=== PATIENT | female | born 1930 | race Caucasian/White ===

== ENCOUNTER 2016-09-27 12:53 | Inpatient (IN) ==
[2016-09-27] MEDS ORDERED: Pantoprazole 80 MG in 0.9 % Sodium Chloride 50 ML IVPB ONE (12:58)
[2016-09-27] MEDS ORDERED: 0.9 % Sodium Chloride 2,000 ML IVC ONE (12:58)
[2016-09-27] MEDS ORDERED: 0.9 % Sodium Chloride 1,000 ML ONE ×2 (13:02→15:17)
--- NOTE | 2016-09-27 13:04 | Emergency Department Note ---
Disposition Clinical Impression: Atrial fibrillation with RVR, Hypovolemia due to hemorrhage, Elevated troponin I level, Acute on chronic renal failure, Elevated LFTs, Lactic acidosis, Pleural effusion GI bleed Qualifiers: GI bleed type/associated pathology: melena Qualified Code(s): K92.1 - Melena Disposition: Admitted As Inpatient Condition: Critical Time of Disposition: 17:09 GI Bleed HPI - General Chief complaint: ED GI Bleed Stated complaint: Blood in Stool Time Seen by Provider: 09/27/16 12:57 Nursing Notes Reviewed: Yes Vital Signs Reviewed: Yes - History of Present Illness HPI Narrative: Patient is an 86-year-old female with atrial fibrillation on amiodarone with no anti-ideation, who presents with a GI bleed, she called paramedics who responded to her house and found that she had a large amount of dark black colored stool in the toilet in her bed, she was brought to the hospital she has vague complaints including nonspecific abdominal pain, and generalized weakness , patient is pale in route per EMS. Patient reports some abdominal pain and nausea, she denies chest pain, weight changes, urinary problems, fever or chills , shortness of breath, or one-sided weakness. Positive hematochezia, positive melenic stools denies hematemesis Pt Subjective Complaint: melena, blood streaked stool Onset (ago): hour(s) Consistency: intermittent Severity: severe Improves with: nothing Worsens with: bowel movement Context: unknown Treatments Prior to Arrival: none - Related Data Home Medications Medication Instructions Recorded Confirmed Alprazolam [Xanax 0.25 MG Tablet] 0.25 mg PO BID PRN 09/27/16 09/27/16 Amiodarone [Cordarone] 100 mg PO DAILY 09/27/16 09/27/16 Amlodipine [Norvasc] 5 mg PO DAILY 09/27/16 09/27/16 Aspirin [Lo-Dose Aspirin EC] 81 mg PO DAILY 09/27/16 09/27/16 Atorvastatin [Lipitor] 40 mg PO DAILY 09/27/16 09/27/16 Ipratropium/Albuterol Neb [Duoneb] 3 ml IH Q6HR 09/27/16 09/27/16 Levothyroxine [Synthroid] 50 mcg PO DAILY 09/27/16 09/27/16 Lisinopril/Hydrochlorothiazide 1 tab PO BID 09/27/16 09/27/16 [Zestoretic 20-12.5 mg Tablet] Metformin [Glucophage] 500 mg PO BID 09/27/16 09/27/16 Metoprolol [Lopressor] 100 mg PO BID 09/27/16 09/27/16 Oxygen 2 l .ROUTE AD 09/27/16 09/27/16 Sertraline [Zoloft] 200 mg PO DAILY 09/27/16 09/27/16 Allergies Allergy/AdvReac Type Severity Reaction Status Date / Time No Known Allergies Allergy Verified 09/27/16 13:12 Review of Systems: She is a very limited historian, generally she does deny chest pain, but reports nonspecific abdominal pain, she is only alert and oriented 1, so she is a limited historian therefore secondary to altered mental status review of systems is not completely possible Limitations: ROS unobtainable due to patients medical condition (Patient is a very limited historian) Physical Exam - General Limitations: altered mental status General appearance: alert (Appears pale and weak.) - ENT ENT exam: mucous membranes dry - Neck Neck exam: Present: normal inspection, full ROM, trachea midline - Chest Chest inspection: Present: normal inspection, symmetric chest wall rise - Respiratory Respiratory exam: Present: normal lung sounds bilaterally - Cardiovascular Cardiovascular exam: Present: tachycardia, irregular rhythm - Abdominal Exam Abdominal exam: Present: soft, tenderness (Diffuse). Absent: guarding, rebound , Diallo's sign, Rovsing's sign - Rectal Exam Packing Machine Pilot Can Router present during exam: Yes Rectal exam: Present: normal rectal tone, heme (+) stool, black stool, bloody stool - Extremities Exam Extremities exam: Present: normal inspection, full ROM. Absent: tenderness, pedal edema - Expanded Lower Extremity Exam Neurovascular/Tendon exam: Absent: normal capillary refill - Back Exam Back exam: Present: normal inspection, full ROM. Absent: tenderness - Neurological Exam Neurological exam: Present: alert, CN II-XII intact. Absent: oriented X3 ( Laboratory and she self), motor sensory deficit - Psychiatric Psychiatric exam: Present: normal affect, anxious - Skin Skin exam: Present: other (cap Refill greater than 5 seconds) Course Course Narrative: 86yof with afib, GI bleed will get type and screen, CBC BMP lipase lactate, 2 large bore IVs, cardiac monitoring, the patient's hypotensive try 1 L fluids at this time, and reassess. - Reevaluation(s) Reevaluation #1: Patient unresponsive to first liter and a half fluids, added 2 units of RBCs, after talking with GI we will get CT of head and abdomen, pending these findings admit the patient to likely ICU bed Time: 14:31 Reevaluation #2: Spoke with Dr Maldonado states to consult hospitalist for ICU admission. Reevaluation #3: Dr Mcdaniels accepts for ICU, GI bleed hypotension, Anemia - Consultations Consultation #1: Paged Dr Levy Consultation #2: I did speak with Dr. Levy, he states to palpation of Protonix drip give 2 units of RBCs and stabilized, he will pursue upper and lower endoscopy after patient was stable and in the hospital. GI consult placed Time: 14:23 Vital Signs Temperature 97.7 F 09/27/16 12:57 Pulse Rate 113 09/27/16 12:57 Respiratory Rate 18 09/27/16 12:57 Blood Pressure 92/64 09/27/16 12:57 O2 Sat by Pulse Oximetry 96 09/27/16 12:57 Temperature 97.6 F 09/27/16 15:42 Pulse Rate 108 09/27/16 17:44 Respiratory Rate 20 09/27/16 17:23 Blood Pressure 90/65 09/27/16 17:23 O2 Sat by Pulse Oximetry 100 09/27/16 17:03 Oxygen Delivery Oxygen Delivery Nasal Cannula GI Bleed - [facility] Narrative Medical decision making narrative: 86-year-old female with GI bleed, A. fib, hypotension despite 2 L of fluids and 2 units of RBCs, evaluated by Dr. Levy at bedside, admitted to the medicine service Dr. Mcdaniels, accepting, patient stable with hematocrit and 65 upon ED disposition. DNR CCA expressed per daughter who is at bedside. - Differential Diagnosis Likely: Upper gastrointestinal hemorrhage, Lower gastrointestinal hemorrhage, melena - Medical Records Medical records reviewed: Yes I reviewed the patient's medical records. - Lab Data Lab results reviewed: Yes I reviewed the patient's lab results. Result diagrams: 09/27/16 13:50 09/27/16 13:50 Lab Results 09/27/16 09/27/16 09/27/16 Range/Units 13:50 13:50 13:50 WBC (4.3-11.1) K/mcL RBC (3.82-4.97) M/mcL Hgb (11.5-15.4) g/dL Hct (35.3-44.9) % MCV (83.0-100.0) fL MCH (28.0-33.3) pg MCHC (31.6-35.5) g/dL RDW (11.5-14.5) % Plt Count (140-400) K/mcL MPV (9.4-12.4) fL Immature Gran % (0-4) % Seg Neutrophils % % Lymphocytes % % Monocytes % % Eosinophils % % Basophils % % Neutrophils # (1.6-8.9) K/mcL Lymphocytes # (0.6-4.6) K/mcL Monocytes # (0.0-1.3) K/mcL Eosinophils # (0.0-0.6) K/mcL Basophils # (0.0-0.2) K/mcL PT (9.4-12.1) Seconds INR APTT (26.0-36.0) Seconds Sodium 139 (136-145) mEq/L Potassium 5.7 H (3.5-4.5) mEq/L Chloride 109 (98-109) mEq/L Carbon Dioxide 16 L (19-29) mEq/L BUN 104 H (7-20) mg/dL Creatinine 3.26 H (0.57-1.11) mg/dL Est GFR ( Amer) 16 L (> 60) Est GFR (Non-Af Amer) 13 L (> 60) BUN/Creatinine Ratio 32 H (6-26) Glucose 167 H (70-99) mg/dL Calculated Osmolality 324 H (280-300) Lactic Acid 2.3 H (0.5-2.2) mmol/L Calcium 8.2 L (8.6-10.8) mg/dL Magnesium 1.9 (1.6-2.6) mg/dL Total Bilirubin 1.3 H (0.2-1.2) mg/dL AST 164 H (5-34) Units/L ALT 67 H (0-55) Units/L Alkaline Phosphatase 77 (38-126) Units/L Troponin I 0.04 H* (0-0.03) ng/mL Serum Total Protein 5.7 L (6.0-8.3) g/dL Albumin 2.2 L (3.5-5.0) g/dL Globulin 3.5 (2.4-3.5) g/dL Albumin/Globulin Ratio 0.6 L (1.1-2.2) Lipase 38 (8-78) Units/L Urine Color (Yellow) Urine Clarity (Clear) Urine pH (5.0-8.0) pH Units Ur Specific Teller (1.010-1.025) Urine Protein (Neg-Trace) mg/dL Urine Glucose (UA) (Normal) mg/dL Urine Ketones (Negative) mg/dL Urine Blood (Negative) Urine Nitrite (Negative) Urine Bilirubin (Negative) Urine Urobilinogen (Normal) mg/dL Ur Leukocyte Esterase (Negative) Urine Microscopic RBC (0-3) per hpf Urine Microscopic WBC (0-3) per hpf Ur Squamous Epith Cells (None-Few) per lpf Urine Bacteria (None-Few) per hpf Hyaline Casts (None-Few) per lpf Ur Culture Indicated? (NO) Stool Occult Blood (Negative) Blood Type Antibody Screen Crossmatch 09/27/16 09/27/16 09/27/16 Range/Units 13:50 13:50 13:50 WBC 18.5 H (4.3-11.1) K/mcL RBC 4.39 (3.82-4.97) M/mcL Hgb 10.7 L (11.5-15.4) g/dL Hct 35.9 (35.3-44.9) % MCV 81.8 L (83.0-100.0) fL MCH 24.4 L (28.0-33.3) pg MCHC 29.8 L (31.6-35.5) g/dL RDW 17.2 H (11.5-14.5) % Plt Count 141 (140-400) K/mcL MPV 12.4 (9.4-12.4) fL Immature Gran % 0.7 (0-4) % Seg Neutrophils % 87.2 % Lymphocytes % 5.9 % Monocytes % 6.0 % Eosinophils % 0.1 % Basophils % 0.1 % Neutrophils # 16.1 H (1.6-8.9) K/mcL Lymphocytes # 1.1 (0.6-4.6) K/mcL Monocytes # 1.1 (0.0-1.3) K/mcL Eosinophils # 0.0 (0.0-0.6) K/mcL Basophils # 0.0 (0.0-0.2) K/mcL PT 17.9 H (9.4-12.1) Seconds INR 1.6 APTT 30.2 (26.0-36.0) Seconds Sodium (136-145) mEq/L Potassium (3.5-4.5) mEq/L Chloride (98-109) mEq/L Carbon Dioxide (19-29) mEq/L BUN (7-20) mg/dL Creatinine (0.57-1.11) mg/dL Est GFR ( Amer) (> 60) Est GFR (Non-Af Amer) (> 60) BUN/Creatinine Ratio (6-26) Glucose (70-99) mg/dL Calculated Osmolality (280-300) Lactic Acid (0.5-2.2) mmol/L Calcium (8.6-10.8) mg/dL Magnesium (1.6-2.6) mg/dL Total Bilirubin (0.2-1.2) mg/dL AST (5-34) Units/L ALT (0-55) Units/L Alkaline Phosphatase (38-126) Units/L Troponin I (0-0.03) ng/mL Serum Total Protein (6.0-8.3) g/dL Albumin (3.5-5.0) g/dL Globulin (2.4-3.5) g/dL Albumin/Globulin Ratio (1.1-2.2) Lipase (8-78) Units/L Urine Color (Yellow) Urine Clarity (Clear) Urine pH (5.0-8.0) pH Units Ur Specific Teller (1.010-1.025) Urine Protein (Neg-Trace) mg/dL Urine Glucose (UA) (Normal) mg/dL Urine Ketones (Negative) mg/dL Urine Blood (Negative) Urine Nitrite (Negative) Urine Bilirubin (Negative) Urine Urobilinogen (Normal) mg/dL Ur Leukocyte Esterase (Negative) Urine Microscopic RBC (0-3) per hpf Urine Microscopic WBC (0-3) per hpf Ur Squamous Epith Cells (None-Few) per lpf Urine Bacteria (None-Few) per hpf Hyaline Casts (None-Few) per lpf Ur Culture Indicated? (NO) Stool Occult Blood (Negative) Blood Type A POSITIVE Antibody Screen NEGATIVE Crossmatch See Detail 09/27/16 09/27/16 Range/Units 15:13 15:41 WBC (4.3-11.1) K/mcL RBC (3.82-4.97) M/mcL Hgb (11.5-15.4) g/dL Hct (35.3-44.9) % MCV (83.0-100.0) fL MCH (28.0-33.3) pg MCHC (31.6-35.5) g/dL RDW (11.5-14.5) % Plt Count (140-400) K/mcL MPV (9.4-12.4) fL Immature Gran % (0-4) % Seg Neutrophils % % Lymphocytes % % Monocytes % % Eosinophils % % Basophils % % Neutrophils # (1.6-8.9) K/mcL Lymphocytes # (0.6-4.6) K/mcL Monocytes # (0.0-1.3) K/mcL Eosinophils # (0.0-0.6) K/mcL Basophils # (0.0-0.2) K/mcL PT (9.4-12.1) Seconds INR APTT (26.0-36.0) Seconds Sodium (136-145) mEq/L Potassium (3.5-4.5) mEq/L Chloride (98-109) mEq/L Carbon Dioxide (19-29) mEq/L BUN (7-20) mg/dL Creatinine (0.57-1.11) mg/dL Est GFR ( Amer) (> 60) Est GFR (Non-Af Amer) (> 60) BUN/Creatinine Ratio (6-26) Glucose (70-99) mg/dL Calculated Osmolality (280-300) Lactic Acid (0.5-2.2) mmol/L Calcium (8.6-10.8) mg/dL Magnesium (1.6-2.6) mg/dL Total Bilirubin (0.2-1.2) mg/dL AST (5-34) Units/L ALT (0-55) Units/L Alkaline Phosphatase (38-126) Units/L Troponin I (0-0.03) ng/mL Serum Total Protein (6.0-8.3) g/dL Albumin (3.5-5.0) g/dL Globulin (2.4-3.5) g/dL Albumin/Globulin Ratio (1.1-2.2) Lipase (8-78) Units/L Urine Color Dark Yellow (Yellow) Urine Clarity Cloudy A (Clear) Urine pH 5.0 (5.0-8.0) pH Units Ur Specific Teller 1.019 (1.010-1.025) Urine Protein Negative (Neg-Trace) mg/dL Urine Glucose (UA) Normal (Normal) mg/dL Urine Ketones Negative (Negative) mg/dL Urine Blood Negative (Negative) Urine Nitrite Negative (Negative) Urine Bilirubin Small H (Negative) Urine Urobilinogen Normal (Normal) mg/dL Ur Leukocyte Esterase Small H (Negative) Urine Microscopic RBC 3-5 H (0-3) per hpf Urine Microscopic WBC 5-15 H (0-3) per hpf Ur Squamous Epith Cells Many H (None-Few) per lpf Urine Bacteria None Seen (None-Few) per hpf Hyaline Casts Few (None-Few) per lpf Ur Culture Indicated? YES A (NO) Stool Occult Blood Positive A (Negative) Blood Type Antibody Screen Crossmatch - Radiology Data Radiology results reviewed: Yes I reviewed the patient's radiology results. Chest X-Ray 09/27/16 12:58 IMPRESSION: Cardiomegaly with edema and small effusions. D/ / 09/27/2016 14:02:21 Shaggy Gonzalez MD / [facility] Interpreting Provider: Shaggy Gonzalez MD Head CT 09/27/16 13:57 IMPRESSION: No acute intracranial abnormality. 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 Mild to moderate parenchymal volume loss. Mild to moderate chronic microvascular disease. D/ / Alexandru Doss MD / Alexandru Doss MD Interpreting Provider: Alexandru Doss MD Abdomen/Pelvis CT 09/27/16 14:19 IMPRESSION: 1. No acute finding to account for patient's hypotension. 2. Heterogeneous appearance of the gallbladder wall, inseparable from adjacent liver parenchyma. Recommend right upper quadrant ultrasound for further evaluation. Differential includes gallbladder inflammation versus gallbladder mass. 3. Indistinct hypodensity in the left hepatic lobe, 1.1 cm in size. Finding would better be assessed with a liver MRI. 4. Small to moderate ascites. 5. Moderate to large right pleural effusion with compressive atelectasis of the right lower lobe. Small left pleural effusion. 6. Anasarca. D/ / 09/27/2016 15:58:09 Elias Blount MD / [facility] Interpreting Provider: Elias Blount MD - EKG Data EKG attestation: Yes I reviewed and interpreted this EKG. EKG shows normal: sinus rhythm Rate: tachycardia (10 5 bpm and irregularly irregular QRS 134 QTc 431) Supply/QRS: normal When compared to previous EKG there are: previous EKG unavailable - Core Measures AMI Core Measures Followed: No Attestation Statement - Attestation Attestation: For this encounter, I have reviewed the resident, SENIOR ACCOUNTS PAYABLE SPECIALIST, or PA documentation, treatment plan, and medical decision making; and I have had face to face time with this patient. 86-year-old female presents with concerns of GI bleeding. Patient states she had multiple episodes of hematochezia and melena at home. This was confirmed by EMS who found stool throughout her bathroom. Patient is confused and is unable to provide a significant history regarding her symptoms. Family arrived and stated that she did not have any history of GI bleeding in the past. She does not take any anticoagulant medications. Patient's hemoglobin was not anemic however she had another episode of maroon stool in the emergency department. She is pale, tachycardic, hypotensive and we were treating her as a GI bleed. Patient was given her Protonix and we contacted Dr. Levy regarding her case and presentation who agreed with plan for admission to the ICU and will likely scope her with endoscopy and colonoscopy once her blood pressure stabilizes. Since started on the first red blood cell transfusion in the emergency department. Patient continues to have a soft blood pressure however her map is greater than 65. We spoke with the patient and with the daughter who both agreed that the patient would be a DNR CCA. Patient is mildly confused on the emergency department however her daughter is the next of kin.
[2016-09-27 13:58] LABS: Basophils % 0.1 %; Eosinophils % 0.1 %; Hematocrit 35.9 % (35.3-44.9); Hemoglobin 10.7 g/dL (11.5-15.4); Immature Granulocytes % 0.7 % (0-4); Lymphocytes # 1.1 K/mcL (0.6-4.6); Lymphocytes % 5.9 %; Mean Corpuscular HGB Conc 29.8 g/dL (31.6-35.5); Mean Corpuscular Hemoglobin 24.4 pg (28.0-33.3); Mean Corpuscular Volume 81.8 fL (83.0-100.0); Mean Platelet Volume 12.4 fL (9.4-12.4); Monocytes # 1.1 K/mcL (0.0-1.3); Neutrophils # 16.1 K/mcL (1.6-8.9); Platelet Count 141 K/mcL (140-400); Red Blood Count 4.39 M/mcL (3.82-4.97); Red Cell Distribution Width 17.2 % (11.5-14.5); Segmented Neutrophils % 87.2 %
[2016-09-27 14:06] LABS: INR 1.6; Prothrombin Time 17.9 Seconds (9.4-12.1)
[2016-09-27 14:08] LABS: Activated Partial Thrombo Time 30.2 Seconds (26.0-36.0)
[2016-09-27 14:15] LABS: Albumin 2.2 g/dL (3.5-5.0); Albumin/Globulin Ratio 0.6 (1.1-2.2); Bilirubin,Total 1.3 mg/dL (0.2-1.2); Calcium 8.2 mg/dL (8.6-10.8); Globulin 3.5 g/dL (2.4-3.5); Magnesium 1.9 mg/dL (1.6-2.6); Potassium 5.7 mEq/L (3.5-4.5); Total Protein 5.7 g/dL (6.0-8.3)
[2016-09-27] MEDS ORDERED: Pantoprazole 40 MG in 0.9 % Sodium Chloride Mini Bag 100 ML IVC SCH (14:30)
[2016-09-27 15:24] LABS: Bilirubin,Urine Small (Negative); Blood,Urine Negative (Negative); Clarity,Urine Cloudy (Clear); Color,Urine Dark Yellow (Yellow); Glucose,Urine (UA) Normal (Normal); Ketones,Urine Negative (Negative); Leukocyte Esterase,Urine Small (Negative); Nitrite,Urine Negative (Negative); Protein,Urine Negative (Neg-Trace); Specific Gravity,Urine 1.019 (1.010-1.025); Urobilinogen,Urine Normal (Normal)
[2016-09-27 15:26] LABS: Bacteria,Urine None Seen per hpf (None-Few); Hyaline Casts,Urine Few per lpf (None-Few); Squamous Epithelial Cell,Urine Many per lpf (None-Few)
[2016-09-27] MEDS ORDERED: *HR* Morphine 2 MG/ML SYRINGE IVP PRN (17:25)
[2016-09-27] MEDS ORDERED: Naloxone 0.4 MG/ML INJ IVP PRN (17:25)
--- NOTE | 2016-09-27 18:08 | Internal Med History&Physical ---
Date of Encounter: 09/27/16 Time of Encounter: 17:30 Assessment and Plan (1) Acute blood loss anemia Current visit: Yes Status: Acute Melena. Hgb 10.7. Transfused 2 PRBC. repeat hgb this evening. close monitor in ICU. Dr Levy consulted, plan for EGD in AM. critical care time 30 minutes (2) Hypovolemia due to hemorrhage Current visit: Yes Status: Acute Bp 87/67 Received 3L IV fluids and 2 PRBC. Bp now is 91/68. close monitoring in ICU. IV fluids. repeat hgb. transfuse as needed (3) GI bleed Current visit: Yes Status: Acute melena at home and in the ED. IV PPI drip transfused [address] Levy consulted. IV fluids. Qualifiers: GI bleed type/associated pathology: melena Qualified Code(s): K92.1 - Melena (4) ELYSE (acute kidney injury) Current visit: Yes Status: Acute elevated BUN/CR with hyperkalemia and metabolic acidosis secondary to GI bleed. received IV fluids. repeat BMP. avoid nephrotoxins as possible. close monitor of kidney function. (5) Metabolic acidosis Current visit: Yes Status: Acute secondary to lactic acidosis. (6) Elevated troponin I level Current visit: Yes Status: Acute likely supply demand mismatch check echocardiogram serial troponins ekg in AM (7) Lactic acidosis Current visit: Yes Status: Acute IV fluids. follow up lactic acid (8) Atrial fibrillation Current visit: Yes Status: Acute EGK showed a fib HR 109. holding home dose of metoprolol due to hypotension and GI bleed. Qualifiers: Atrial fibrillation type: chronic Qualified Code(s): I48.2 - Chronic atrial fibrillation (9) HTN (hypertension) Current visit: Yes Status: Acute hypotensive due to GI bleed. holding all home meds Qualifiers: Hypertension type: essential hypertension Qualified Code(s): I10 - Essential (primary) hypertension (10) Heart failure Current visit: Yes Status: Acute unknown LVEF. CXR shows mild pulmonary edema. Qualifiers: Heart failure type: unspecified heart failure type Heart failure chronicity : chronic Qualified Code(s): I50.9 - Heart failure, unspecified Internal Medicine - H&P: HPI Chief complaint: Episode of black stools this morning. Admitted From: Home Plans for Post Hospital Care: Home History of present illness: Ms. Waller is a 86 year old female with past medical history of diabetes, hypertension, CHF, and atrial fibrillation on amiodarone. Not on anticoagulation. Patient only takes aspirin. Patient is very confused and unable to provide a history of present illness. Her daughter is at bedside, answering all questions. For a week, patient complaining of generalized weakness, confusion and imbalance but did not want to see a doctor. This morning she had an episode of black stools and her daughter brought her to the ED. No prior episodes of bleeding. No abdominal pain. No other bleeding. No fever. No cough. No syncope. no Seizure. No focal deficit. No headache. No nausea. No vomiting. No history of colon cancer in the family. In ED, patient was hypotensive BP 86/61, tachycardic rate 113 and hypoxia requiring 4 L of oxygen via nasal cannula SaO2 96%. He had an episode of a large dark stools while in ED. She received 4 L of IV NS and was started on a Protonix drip. Past Med Surg Social Fam HX - Past Medical History Medical history: atrial fibrillation, CHF, COPD, dementia, hypertension, myocardial infarction, thyroid disease Psychiatric history: anxiety, depression - Past Surgical History Surgical History: coronary bypass (CABG) - Social History Smoking Status: Never smoker Smokeless Tobacco Status: No Alcohol use: none Drug use: none - Family History Mother Hx Family Cancer: Yes (uterine cancer) Internal Medicine - H&P: Meds Alprazolam [Xanax 0.25 MG Tablet] 0.25 mg PO BID PRN 09/27/16 [History] Amiodarone [Cordarone] 100 mg PO DAILY 09/27/16 [History] Amlodipine [Norvasc] 5 mg PO DAILY 09/27/16 [History] Aspirin [Lo-Dose Aspirin EC] 81 mg PO DAILY 09/27/16 [History] Atorvastatin [Lipitor] 40 mg PO DAILY 09/27/16 [History] Ipratropium/Albuterol Neb [Duoneb] 3 ml IH Q6HR 09/27/16 [History] Levothyroxine [Synthroid] 50 mcg PO DAILY 09/27/16 [History] Lisinopril/Hydrochlorothiazide [Zestoretic 20-12.5 mg Tablet] 1 tab PO BID 09/27 [History] Metformin [Glucophage] 500 mg PO BID 09/27/16 [History] Metoprolol [Lopressor] 100 mg PO BID 09/27/16 [History] Oxygen 2 l .ROUTE AD 09/27/16 [History] Sertraline [Zoloft] 200 mg PO DAILY 09/27/16 [History] Allergies No Known Allergies Allergy (Verified 09/27/16 13:12) ROS unobtainable: due to mental status All Systems PM: A 10-system review of systems was performed and is negative for pertinent findings except as documented above in the HPI. - Constitutional Vitals: Temp Pulse Resp BP Pulse Ox 97.6 F 94 20 90/65 100 09/27/16 15:42 09/27/16 17:03 09/27/16 17:23 09/27/16 17:23 09/27/16 17:03 General appearance: Present: A&O X 1, pleasant, no acute distress Exam: Patient has her eyes closed but she opens it upon request from her daughter and turns her head to my side and says hello. She follows some commands such as raising her right arm and taking deep breath. She moves all extremities. - Eye Eye exam: Present: PERRL, sclera anicteric - ENT ENT exam: Present: mucous membranes dry - Neck Neck exam general surgery: Present: supple, trachea midline. Absent: lymphadenopathy - Respiratory Respiratory exam: Present: CTAB - Cardiovascular Cardiovascular exam: Present: tachycardia - GI/Abdominal GI/Abdominal exam: Present: normal bowel sounds, soft. Absent: distended, tenderness - Extremities Exam Extremities exam: Absent: pedal edema - Skin Skin exam: Present: pallor, rash (multiple Psoriatic lesions over her extremities and abdomen.) Internal Med - H&P Results - Labs CBC & Chem 7: 09/27/16 13:50 09/27/16 13:50
[2016-09-27] MEDS ORDERED: Ondansetron 4 MG/2 ML VIAL IVP PRN (18:12)
--- NOTE | 2016-09-27 18:56 | Event Note ---
Date of Encounter: 09/27/16 Time of Encounter: 15:[address] scan. D/W Daughter. Melena x 1 episode and now anemia and renal failure and poss HF. Rec: PPI infusion Blood transfusion EGD am as pt Hb not critical and she is getting imaging doen and need to be stabilize.
[2016-09-27] MEDS: Pantoprazole 40 MG in 0.9 % Sodium Chloride Mini Bag 100 ML IVC SCH (20:11)
[2016-09-27 22:32] LABS: Hemoglobin 13.8 g/dL (11.5-15.4)
[2016-09-28] MEDS: Pantoprazole 40 MG in 0.9 % Sodium Chloride Mini Bag 100 ML IVC SCH ×5 (01:08→23:54)
[2016-09-28 03:10] LABS: Basophils % 0.1 %; Hematocrit 43.7 % (35.3-44.9); Hemoglobin 13.5 g/dL (11.5-15.4); Immature Granulocytes % 1.1 % (0-4); Immature Platelets 7.2 % (1.1-6.1); Lymphocytes # 1.2 K/mcL (0.6-4.6); Lymphocytes % 5.9 %; Mean Corpuscular HGB Conc 30.9 g/dL (31.6-35.5); Mean Corpuscular Hemoglobin 25.5 pg (28.0-33.3); Mean Corpuscular Volume 82.5 fL (83.0-100.0); Monocytes # 1.2 K/mcL (0.0-1.3); Monocytes % 5.9 %; Neutrophils # 17.1 K/mcL (1.6-8.9); Nucleated Red Blood Cells 0.3 /100 WBC (0); Platelet Count 126 K/mcL (140-400); Red Cell Distribution Width 17.4 % (11.5-14.5)
[2016-09-28 03:24] LABS: Albumin 2.3 g/dL (3.5-5.0); Albumin/Globulin Ratio 0.6 (1.1-2.2); Bilirubin,Direct 1.3 mg/dL (0.0-0.5); Bilirubin,Indirect 0.7 mg/dL (0.0-1.2); Calcium 8.4 mg/dL (8.6-10.8); Magnesium 1.8 mg/dL (1.6-2.6); Phosphorous 4.8 mg/dL (2.3-4.7); Potassium 5.5 mEq/L (3.5-4.5); Total Protein 6.3 g/dL (6.0-8.3)
[2016-09-28] MEDS ORDERED: Ipratropium/Albuterol Neb 3 ML IH PRN (07:25)
[2016-09-28] MEDS ORDERED: *HR* Morphine 2 MG/ML SYRINGE IV PRN (07:25)
[2016-09-28] MEDS ORDERED: Acetaminophen 325 MG TABLET PO PRN (07:26)
--- NOTE | 2016-09-28 07:30 | Internal Med Progress Note ---
Date of Encounter: 09/28/16 Time of Encounter: 07:28 - Assessment and plan (1) Acute blood loss anemia Current Visit: Yes Status: Acute Assessment and plan: Metabolic encephalopathy secondary to acute blood loss anemia/hypovolemia due to GI bleed likely Upper Transfused 2 units of RBCs Monitr CBC HOld ASA EGD today. Protonix drip IVF (2) Elevated troponin Current Visit: Yes Status: Acute Assessment and plan: likely secondary to demand ischemia. Hx of CAD CABG hold ASA due to GI bleed (3) Hyperkalemia Current Visit: Yes Status: Acute Assessment and plan: monitor K, may use Kayexelate (4) ELYSE (acute kidney injury) Current Visit: Yes Status: Acute Assessment and plan: secondary to dehydration and hypovolemia [place] whether she has CKD or not. Oliguric Start IVF HOld Lisinopril /HCTZ, hold amlodipine (5) Atrial fibrillation Current Visit: Yes Status: Acute Assessment and plan: may resume metoprolol and amiodarone since she is more stable now Qualifiers: Atrial fibrillation type: chronic Qualified Code(s): I48.2 - Chronic atrial fibrillation (6) Elevated LFTs Current Visit: Yes Status: Acute Assessment and plan: monitor LFTs, unclear , possibly due to hypovolemia consider RUQ U/S if not improving (7) GI bleed Current Visit: Yes Status: Acute Assessment and plan: as stated above Qualifiers: GI bleed type/associated pathology: melena Qualified Code(s): K92.1 - Melena (8) Heart failure Current Visit: Yes Status: Acute Assessment and plan: systolic vs diastolic no exacerbation echo ordered Qualifiers: Heart failure type: unspecified heart failure type Heart failure chronicity : chronic Qualified Code(s): I50.9 - Heart failure, unspecified (9) Hypovolemia due to hemorrhage Current Visit: Yes Status: Acute (10) Lactic acidosis Current Visit: Yes Status: Acute Assessment and plan: improved high risk due to hypotension and GI bleed - Time Spent With Patient Greater than 35 minutes - Subjective Interval history: incoherent, mumbling words, appears to be in no distress. Unable to complete ROS due to confusion - Constitutional Vitals: Temp Pulse Resp BP Pulse Ox 96.8 F L 100 14 106/84 95 09/28/16 07:26 09/28/16 06:00 09/28/16 06:00 09/28/16 06:00 09/28/16 06:00 General appearance: Present: A&O X 1, pleasant, no acute distress Exam: dehydrated, dry mucosa. Poor dentition. - Head Head exam: Present: atraumatic, normocephalic - Eye Eye exam: Present: PERRL, conjuntiva pink, sclera anicteric Pupils: Present: PERRL - Neck Neck exam general surgery: Present: supple, trachea midline. Absent: lymphadenopathy - Respiratory Respiratory exam: Present: decreased breath sounds, CTAB. Absent: accessory muscle use, rales, rhonchi, wheezes - Cardiovascular Cardiovascular exam: Present: RRR, +S1, +S2. Absent: diastolic murmur, gallop, rubs, systolic murmur - GI/Abdominal GI/Abdominal exam: Present: distended, normal bowel sounds, soft, no peritoneal signs. Absent: tenderness - Extremities Exam Extremities exam: Present: warm, radial pulses palpable and symetrical. Absent : calf tenderness, cyanotic, pedal edema - Neurological Exam Neurological exam: Present: CN II-XII intact, no focal deficits. Absent: oriented X3, pronater drift, facial droop, speech deficit - Skin Skin exam: Present: dry, intact Internal Medicine: Result - Labs CBC & Chem 7: 09/28/16 02:23 09/28/16 02:23 Labs: Short CBC 09/27/16 09/28/16 Range/Units 22:21 02:23 WBC 19.7 H (4.3-11.1) K/mcL Hgb 13.8 D 13.5 (11.5-15.4) g/dL Hct 44.0 43.7 (35.3-44.9) % Plt Count 126 L (140-400) K/mcL Neutrophils # 17.1 H (1.6-8.9) K/mcL BMP 09/28/16 02:23 Sodium 140 Potassium 5.5 H Chloride 110 H Carbon Dioxide 16 L BUN 108 H Creatinine 3.24 H Glucose 165 H Calcium 8.4 L Liver Function 09/28/16 Range/Units 02:23 Total Bilirubin 2.0 H D (0.2-1.2) mg/dL Direct Bilirubin 1.3 H (0.0-0.5) mg/dL AST 336 H (5-34) Units/L ALT 105 H (0-55) Units/L Alkaline Phosphatase 83 (38-126) Units/L Albumin 2.3 L (3.5-5.0) g/dL - ABG Interpretation ABG results: PT/INR, D-dimer PT 17.9 Seconds (9.4-12.1) H 09/27/16 13:50 Consult Discharge Plan - Plan Referrals: NO,PCP [Primary Care Provider] -
[2016-09-28] MEDS ORDERED: ALPRAZolam 0.25 MG TABLET PO PRN (07:33)
[2016-09-28] MEDS: *HR* Amiodarone 200 MG TABLET PO SCH (08:21)
--- NOTE | 2016-09-28 11:58 | Gastroenterology Consult Note ---
<GaleasGiuliano Atwood - Last Filed: 09/28/16 11:55> Date of Encounter: 09/28/16 Time of Encounter: 10:45 - Assessment and plan (1) GI bleed Current Visit: Yes Status: Acute Assessment and plan: Pt with melena. Hgb 10.7 on admission, today 13.5 after 2 units PRBC. Continue to monitor CBC and transfuse PRBC as needed. Plan for EGD today to r/o esophagitis, gastritis, duodenitis, PUD, MW tear, or AVM. Keep pt NPO. Qualifiers: GI bleed type/associated pathology: melena Qualified Code(s): K92.1 - Melena (2) Elevated LFTs Current Visit: Yes Status: Acute Assessment and plan: CT A/P showed heterogenous appearance of gallbladder wall, inseparable from adjacent liver parenchyma, gall bladder inflammation vs mass, indistinct hypodensity in left hepatic lobe 1.1cm in size, small to moderate ascites. Complete RUQ US and liver workup. Monitor hepatic panel daily. - Time Spent With Patient Total time spent is greater than 50% in coordination of care (as documented) at patient's floor/unit and/or counseling patient: GI History of Present Illness - Data of Consult Patient: new to practice Consult date: 09/28/16 Requesting Physician: Tyshawn Rios - Consult Narrative Reason for consult: GI Bleed, Melena History of present illness: Ms. Waller is a 86 year old female with PMHx of DM, Afib on Amiodarone, CHF, COPD, demetia, HTN, [place], thyroid disease who presented to the ED with melena. Patient is very confused and unable to provide a history of present illness. History btained through chart review. No family at bedside during my exam. For a week, patient complaining of generalized weakness, confusion and imbalance but did not want to see a doctor. The morning of admission, she had an episode of black stools and her daughter brought her to the ED. No prior episodes of bleeding. No abdominal pain, fever, cough. No other bleeding. No fever. No cough. No syncope. no Seizure. No focal deficit. No headache. No nausea. No vomiting. No history of colon cancer in the family. She had an episode of a large dark stools while in ED. She received 4 L of IV NS and was started on a Protonix drip. On admission Hgb 10.7 and she received 2 units PRBC, and this AM Hgb 13.5. Procedures: None NSAIDs: ASA Anticoagulation: None Past Med Surg Social Fam HX - Past Medical History Medical history: atrial fibrillation, CHF, COPD, dementia, hypertension, myocardial infarction, thyroid disease Psychiatric history: anxiety, depression - Past Surgical History Surgical History: coronary bypass (CABG) - Social History Smoking Status: Never smoker Smokeless Tobacco Status: No Alcohol use: none Drug use: none - Family History Mother Hx Family Cancer: Yes (uterine cancer) ROS unobtainable: due to mental status - Constitutional Vitals: Temp Pulse Resp BP Pulse Ox 97.5 F L 105 18 95/75 94 L 09/28/16 11:25 09/28/16 10:00 09/28/16 10:00 09/28/16 10:00 09/28/16 10:00 General appearance: Present: A&O X 0, no acute distress - Head Head exam: Present: atraumatic, normocephalic - Eye Eye exam: Present: normal appearance, sclera anicteric - ENT ENT exam: Present: mucous membranes dry - Neck Neck exam general surgery: Present: normal inspection, trachea midline - Respiratory Respiratory exam: Present: decreased breath sounds, CTAB. Absent: rales, rhonchi - Cardiovascular Cardiovascular exam: Present: RRR, +S1, +S2 - GI/Abdominal GI/Abdominal exam: Present: soft, no peritoneal signs. Absent: distended, firm , guarding, tenderness - Rectal Rectal exam: Present: deferred - Extremities Exam Extremities exam: Present: warm - Neurological Exam Neurological exam: Present: altered - Psychiatric Psychiatric exam: Present: normal affect, normal mood - Skin Skin exam: Present: dry, intact, normal color, warm Results - Labs CBC & Chem 7: 09/28/16 02:23 09/28/16 02:23 Labs: Last Result Calcium 8.4 mg/dL (8.6-10.8) L 09/28/16 02:23 Troponin I 0.04 ng/mL (0-0.03) H* 09/27/16 13:50 Stool Occult Blood Positive (Negative) A 09/27/16 15:41 Entire Visit Hgb 13.5 g/dL (11.5-15.4) 09/28/16 02:23 Hct 43.7 % (35.3-44.9) 09/28/16 02:23 PT 17.9 Seconds (9.4-12.1) H 09/27/16 13:50 Total Bilirubin 2.0 mg/dL (0.2-1.2) H D 09/28/16 02:23 AST 336 Units/L (5-34) H 09/28/16 02:23 ALT 105 Units/L (0-55) H 09/28/16 02:23 Lipase 38 Units/L (8-78) 09/27/16 13:50 - ABG ABG results: PT/INR, D-dimer PT 17.9 Seconds (9.4-12.1) H 09/27/16 13:50 Consult Discharge Plan - Plan Referrals: NO,PCP [Primary Care Provider] - <Rafaela Levy - Last Filed: 09/28/16 21:05> Date of Encounter: 09/28/16 Time of Encounter: 14:00 - Time Spent With Patient Total time spent is greater than 50% in coordination of care (as documented) at patient's floor/unit and/or counseling patient: GI History of Present Illness - Data of Consult Requesting Physician: Tyshawn Rios - Consult Narrative History of present illness: Ms. Waller is a 86 year old female - Constitutional Vitals: Temp Pulse Resp BP Pulse Ox 95.4 F L 90 15 92/69 97 09/28/16 19:00 09/28/16 20:00 09/28/16 20:00 09/28/16 20:00 09/28/16 20:00 Results - Labs CBC & Chem 7: 09/28/16 16:11 09/28/16 02:23 Labs: Last Result Calcium 8.4 mg/dL (8.6-10.8) L 09/28/16 02:23 Iron 25 mcg/dL (50-170) L 09/28/16 12:56 % Saturation 7 % (15-50) L 09/28/16 12:56 Transferrin 243 mg/dL (180-382) 09/28/16 12:56 Ferritin 136 ng/ml (5-204) 09/28/16 12:56 Troponin I 0.04 ng/mL (0-0.03) H* 09/27/16 13:50 Stool Occult Blood Positive (Negative) A 09/27/16 15:41 Entire Visit Hgb 13.0 g/dL (11.5-15.4) 09/28/16 16:11 Hct 42.2 % (35.3-44.9) 09/28/16 16:11 PT 17.9 Seconds (9.4-12.1) H 09/27/16 13:50 Ferritin 136 ng/ml (5-204) 09/28/16 12:56 Total Bilirubin 2.0 mg/dL (0.2-1.2) H D 09/28/16 02:23 AST 336 Units/L (5-34) H 09/28/16 02:23 ALT 105 Units/L (0-55) H 09/28/16 02:23 Lipase 38 Units/L (8-78) 09/27/16 13:50 - ABG ABG results: PT/INR, D-dimer PT 17.9 Seconds (9.4-12.1) H 09/27/16 13:50 - Impressions Impressions Liver Ultrasound 09/28/16 18:00 IMPRESSION: Cholelithiasis with wall thickening suspected acute calculus cholecystitis. D/ / Dewayne Bergman MD / Dewayne Bergman MD Interpreting Provider: Dewayne Bergman MD - Attending Attestation I examined this patient and my medical decision-making was reviewed with the CHIEF INNOVATION OFFICER/PA/Advanced Practice Nurse/Resident Physician. I agree with the documented findings, disposition and treatment plan as described except to the extent set forth below.
[2016-09-28] MEDS: 0.9 % Sodium Chloride 1,000 ML IVC SCH ×2 (12:25→22:09)
[2016-09-28] MEDS ORDERED: Perflutren Lipid Microsphere 1.3 ML in 0.9 % Sodium Chloride 8.7 ML IVP ONE (13:34)
--- NOTE | 2016-09-28 13:55 | Anesthesia Evaluation PreOp ---
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: Other (dementia) Other Medical History: Renal (CKD), Bleeding (melana; hypotension (anti- hypertensives being held -- not on vasopressors)), Diabetes Type II (oral medications only) Anesthesia History: No Prior Anesthetic Complications Alcohol Use: none Drug use: none Medications and Allergies Alprazolam [Xanax 0.25 MG Tablet] 0.25 mg PO BID PRN 09/27/16 [History] Amiodarone [Cordarone] 100 mg PO DAILY 09/27/16 [History] Amlodipine [Norvasc] 5 mg PO DAILY 09/27/16 [History] Aspirin [Lo-Dose Aspirin EC] 81 mg PO DAILY 09/27/16 [History] Atorvastatin [Lipitor] 40 mg PO DAILY 09/27/16 [History] Ipratropium/Albuterol Neb [Duoneb] 3 ml IH Q6HR 09/27/16 [History] Levothyroxine [Synthroid] 50 mcg PO DAILY 09/27/16 [History] Lisinopril/Hydrochlorothiazide [Zestoretic 20-12.5 mg Tablet] 1 tab PO BID 09/27 [History] Metformin [Glucophage] 500 mg PO BID 09/27/16 [History] Metoprolol [Lopressor] 100 mg PO BID 09/27/16 [History] Oxygen 2 l .ROUTE AD 09/27/16 [History] Sertraline [Zoloft] 200 mg PO DAILY 09/27/16 [History] Allergies No Known Allergies Allergy (Verified 09/27/16 13:12) - Meds/Allergy Pre-op Review Medications Reviewed: Yes Allergies Reviewed: Yes Beta Blockers on Current Med List: Yes If Beta Blockers taken, Date/Time (Last Dose taken): held due to hypotension Anesthesia Results - Labs 09/28/16 02:23 09/28/16 02:23 - Imaging EKG: report reviewed, image reviewed (A fib with RVR (HR 105); IVCD) Additional studies: TTE Pending Anesthesia Exam Last Vital Signs Temp 97.5 F L 09/28/16 11:25 Pulse 101 09/28/16 12:40 Resp 20 09/28/16 12:40 BP 104/85 09/28/16 12:40 Pulse Ox 94 L 09/28/16 11:45 Weight: 70 kg NPO (# of Hours): >> 8 hrs - HEENT Pupil (Motor): Pupils equal, EOMI Mallampati: III Teeth: Edentulous Oral Opening: Greater than 3 - EVAPORATOR OPERATOR LOC: Disoriented - Cardiac Rhythm: Irregular Murmur: None - Pulmonary Breath Sounds: bilateral Clear Anesthesia Assess/Plan ASA Score: 4 Modified [place] Scale for Level of Consciousness: Cooperative, oriented, and tranquil Anesthetic Plan: MAC Monitoring Plan: Standard Monitors Recovery Plan: ICU
[2016-09-28] MEDS ORDERED: Lidocaine -MPF 2% 2 ML VIAL ONE (13:57)
[2016-09-28] MEDS ORDERED: *HR* Propofol 200 MG/20 ML VIAL IVP ONE (13:57)
[2016-09-28 15:02] LABS: % Iron Saturation 7 % (15-50); Iron 25 mcg/dL (50-170); Transferrin 243 mg/dL (180-382)
--- NOTE | 2016-09-28 15:03 | ECHO - Doppler Report ---
Echo with Imaging Enhancement Agent Name: Romi Waller Date of Study: 09/28/2016 Date: 1930 Ht: 66.0 in Medical Record#: [id number] Age: 86 Wt: 154.0 lb Gender: Female BSA: 1.79 Order #: [id number] Location: [facility] Room #: IC2 Reading Physician: Orion Bernabe DO, ELLIE BULLOCK FASNC Invoice Machine Operator: Marcie Bell Ordering Physician: Alyson Slade MD Primary Physician: None Indications: Hypotension Impressions: LVEF 30-35%. Severe global left ventricular systolic dysfunction with regional variations. Indeterminate diastolic function due to rhythm. There is no LV thrombus. Atypical septal motion consistent with bundle branch block. Mildly dilated and hypokinetic right ventricle. Moderate biatrial enlargement. Calcified aortic valve leaflets with reduced mobility. Low-flow, low-gradient aortic stenosis. Mean gradient 15 mmHg. Peak 2.46 m/s. BIA < 1cm2. Moderate mitral annular calcification. Borderline mild mitral stenosis. Mean gradient 4 mmHg. Moderate-severe, central mitral regurgitation. Moderate tricuspid regurgitation. No pulmonary hypertension identified. Left Ventricular Wall Motion: Rest Echo Findings The apex, apical inferior, mid inferior, basal inferior, apical anterior, mid anterior, basal anterior, apical septal, mid inferior septal, basal inferior septal, apical lateral, mid anterior lateral, basal anterior lateral, mid anterior septal, mid inferior lateral, basal anterior septal and basal inferior lateral stone were hypokinetic. Findings: Study Quality * Technically adequate exam. ECG Findings * Atrial fibrillation with a bundle branch block. Left Ventricle * LVEF 30-35%. * Severe global left ventricular systolic dysfunction with regional variations. * Indeterminate diastolic function due to rhythm. * There is no LV thrombus. * Atypical septal motion consistent with bundle branch block. Right Ventricle * Mildly dilated right ventricle. * Mild right ventricular hypokinesis. Left Atrium * Moderately dilated left atrium. Right Atrium * Moderately dilated right atrium. Interatrial Septum * Interatrial septum not well evaluated. Aortic Valve * Calcified aortic valve leaflets with reduced mobility. * Low-flow, low-gradient aortic stenosis. Mean gradient 15 mmHg. Peak 2.46 m/s. BIA < 1cm2. * Trace aortic regurgitation. Mitral Valve * Moderate mitral annular calcification. * Mildly thickened mitral valve leaflets. * Borderline mild mitral stenosis. Mean gradient 4 mmHg. * Moderate-severe, central mitral regurgitation. Tricuspid Valve * Normal tricuspid valve structure. * Moderate tricuspid regurgitation. * No pulmonary hypertension identified. Pulmonic Valve * Normal pulmonic valve structure and function. * Trace pulmonic regurgitation. Aorta * Normally sized aortic root. Pericardium * The pericardium appears normal. Pulmonary Artery * Normal visualized portions of the main pulmonary artery. IVC * The IVC is not dilated. * Response to Valsalva not well appreciated. History Measurements: BP: 104/ 85 2D Normal Values RVIDd: 3.30 cm <2.7 cm IVSd: 1.00 cm 0.6 - 1.0 cm LVIDd: 4.80 cm 3.7 - 5.6 cm LVPWd: 1.00 cm 0.6 - 1.1 cm LVIDs: 4.40 cm 1.5 - 3.6 cm AO: 2.60 cm < 4.0 cm LA: 4.30 cm 2.0 - 4.0cm %FS: 8.33 cm >25 % LVOT Diam: 2.00 cm LA volume: 59 Mitral Valve Peak Velocity 1.43 m/sec Mean Velocity:.91 m/sec Peak Grad:8.00 mmHg Mean Grad:4.00 mmHg Pressure Time:40.00 msec Valve Area:1.81 cm2 Peak E:1.22 m/sec Peak E' Lat Lucas:6.04 cm/s Peak E' Med Lucas:6.53 cm/s E/E' Lat Ratio:20.2 LVOT Peak Lucas:.56 m/sec Mean Lucas:.33 m/sec Peak Grad:1.00 mmHg Mean Grad:1.00 mmHg Aortic Valve Peak Lucas:2.46 m/sec Mean Lucas:1.83 m/sec Peak Grad:24.00 mmHg Mean Grad:15.00 mmHg Valve Area:.63 cm2 Tricuspid Valve TV Regurg Peak Grad: 23.00mmHg TV Regurg Peak Lucas: 2.42m/sec Updated by Orion Bernabe DO, KOBE, RELL ARGUETA on 09/28/2016 2:53:56 PM electronically signed on 09/28/2016 2:56:58 PM with status of Final Wall Motion Mcgee: 1=Normal, 2=Hypokinesis, 3=Akinesis, 4=Dyskinesis, 5=Aneurysmal, 6=Hyperkinetic, X=Not Visualized (Blank)=Missing
[2016-09-28 15:25] LABS: Ferritin 136 ng/ml (5-204)
[2016-09-28 16:15] LABS: Hematocrit 42.2 % (35.3-44.9)
[2016-09-28] MEDS ORDERED: Vancomycin 1 EACH in D5% in Water 250 ML IVPB SCH (17:00)
[2016-09-28] MEDS ORDERED: Vancomycin 1,000 MG in D5% in Water 250 ML IVPB ONE (18:00)
[2016-09-28] MEDS: Piperacillin/Tazobactam 3.375 GM in D5% in Water (Mini-Bag+) 100 ML IVPB SCH (18:24)
[2016-09-28] MEDS: Metoprolol 100 MG TABLET PO SCH (20:13)
[2016-09-29 03:39] LABS: Hematocrit 40.7 % (35.3-44.9); Hemoglobin 12.8 g/dL (11.5-15.4); Mean Corpuscular HGB Conc 31.4 g/dL (31.6-35.5); Mean Corpuscular Hemoglobin 25.5 pg (28.0-33.3); Mean Corpuscular Volume 81.2 fL (83.0-100.0); Mean Platelet Volume 11.2 fL (9.4-12.4); Platelet Count 115 K/mcL (140-400); Red Blood Count 5.01 M/mcL (3.82-4.97); Red Cell Distribution Width 18.3 % (11.5-14.5)
[2016-09-29 03:54] LABS: Albumin 2.2 g/dL (3.5-5.0); Albumin/Globulin Ratio 0.6 (1.1-2.2); Bilirubin,Total 1.8 mg/dL (0.2-1.2); Calcium 8.3 mg/dL (8.6-10.8); Globulin 3.7 g/dL (2.4-3.5); Potassium 4.9 mEq/L (3.5-4.5); Total Protein 5.9 g/dL (6.0-8.3)
[2016-09-29] MEDS: Pantoprazole 40 MG in 0.9 % Sodium Chloride Mini Bag 100 ML IVC SCH (05:48)
[2016-09-29] MEDS: Piperacillin/Tazobactam 3.375 GM in D5% in Water (Mini-Bag+) 100 ML IVPB SCH (05:49)
[2016-09-29] MEDS: 0.9 % Sodium Chloride 1,000 ML IVC SCH (08:15)
[2016-09-29] MEDS ORDERED: Vancomycin 750 MG in D5% in Water 250 ML IVPB ONE (09:00)
--- NOTE | 2016-09-29 09:00 | Internal Med Progress Note ---
Date of Encounter: 09/29/16 Time of Encounter: 08:58 - Assessment and plan (1) Sepsis Current Visit: Yes Status: Acute Assessment and plan: Sepsis versus SIRS. She dose meet sepsis criteria with Tachycardia, hypothermia, and leukocytosis. Potential sources include UTI versus Acute calculus cholecystitis. Blood cultures were drawn yesterday and are pending. Urine has grown GPC. Continue Zosyn and vancomyin. Should cover for both UTI and cholecystitis. I have attemtpted to contact the family but Have not been able to. We will define goals of care. If patient would wish agressive measures will consider Cholecystostomy tube /surgical or IR consultation. Leukocytosis has trended down since beginning antibiotics. I discussed the case with Dr. Gomez and Dr. Lieberman PGY2 IM. We will consult Critical care for help with management. I appreciate their assistance. (2) Hypotension Current Visit: Yes Status: Acute Assessment and plan: Etiology unclear at this time. currently she is maintainning a MAP > 65 without pressor support. More likely from sepsis. however would also consider cardiogenic given her EF and moderate to severe MR Doubt from blood loss given her Hg corrected easily with 2 units. (3) Melena Current Visit: Yes Status: Acute Assessment and plan: EGD yesterday showed non bleeding duondenal ulcer. continue PPI. (4) CHF (congestive heart failure) Current Visit: Yes Status: Acute Assessment and plan: She has a history of CHf. No old echocardiograms to compair EF. however she is euvolemic on exam with clear lungs. (5) ELYSE (acute kidney injury) Current Visit: Yes Status: Acute Assessment and plan: Likely from sepsis. hypovolemia. SCR improving. Urine output improving. continue IV fluids. (6) Metabolic acidosis Current Visit: Yes Status: Acute Assessment and plan: Non anion gap Likely from GI losses and NS. change IV fluids to LR. (7) Hyperkalemia Current Visit: Yes Status: Acute Assessment and plan: mild. continue to monitor. (8) Goals of care, counseling/discussion Current Visit: Yes Status: Acute Assessment and plan: Will attempt to call daughter again today. (9) DVT prophylaxis Current Visit: Yes Status: Acute Assessment and plan: EPCDs only given recent GI bleed. - Subjective Interval history: No major events overnight per medical staff. Currently the patient is somnolent. She dose wake and answer questions briefly. However I am unable to gain any useful history of than she complains of abdominal pain. - Constitutional Vitals: Temp Pulse Resp BP Pulse Ox 97.6 F 118 20 88/59 96 09/29/16 04:00 09/29/16 07:45 09/29/16 07:45 09/29/16 07:45 09/29/16 07:45 General appearance: Present: A&O X 1 (person), pleasant, no acute distress - Head Head exam: Present: atraumatic, normal inspection, normocephalic - Eye Eye exam: Present: conjunctival injection, PERRL, conjuntiva pink, sclera anicteric Pupils: Present: PERRL - ENT ENT exam: Present: mucous membranes moist Additional comments: poor dentition - Neck Neck exam general surgery: Present: supple, trachea midline. Absent: lymphadenopathy - Respiratory Respiratory exam: Present: CTAB. Absent: accessory muscle use, rales, rhonchi, wheezes - Cardiovascular Cardiovascular exam: Present: RRR, +S1, +S2. Absent: diastolic murmur, gallop, rubs, systolic murmur - GI/Abdominal GI/Abdominal exam: Present: normal bowel sounds, tenderness (diffuse. More so in the Right upper quadrant. ). Absent: distended, guarding - Extremities Exam Extremities exam: Present: warm, radial pulses palpable and symetrical. Absent : calf tenderness, cyanotic, pedal edema - Skin Skin exam: Present: dry, intact Internal Medicine: Result - Labs CBC & Chem 7: 09/29/16 02:37 09/29/16 02:37 Labs: Short CBC 09/28/16 09/29/16 Range/Units 16:11 02:37 WBC 14.6 H (4.3-11.1) K/mcL Hgb 13.0 12.8 (11.5-15.4) g/dL Hct 42.2 40.7 (35.3-44.9) % Plt Count 115 L (140-400) K/mcL BMP 09/29/16 02:37 Sodium 141 Potassium 4.9 H Chloride 112 H Carbon Dioxide 17 L BUN 110 H Creatinine 3.16 H Glucose 132 H Calcium 8.3 L Liver Function 09/29/16 Range/Units 02:37 Total Bilirubin 1.8 H (0.2-1.2) mg/dL AST 171 H (5-34) Units/L ALT 84 H (0-55) Units/L Alkaline Phosphatase 79 (38-126) Units/L Albumin 2.2 L (3.5-5.0) g/dL - ABG Interpretation ABG results: PT/INR, D-dimer PT 17.9 Seconds (9.4-12.1) H 09/27/16 13:50 - Impressions Impressions Liver Ultrasound 09/28/16 18:00 IMPRESSION: Cholelithiasis with wall thickening suspected acute calculus cholecystitis. D/ / Dewayne Bergman MD / Dewayne Bergman MD Interpreting Provider: Dewayne Bergman MD Consult Discharge Plan - Plan Referrals: NO,PCP [Primary Care Provider] -
[2016-09-29] MEDS ORDERED: Ringers Solution, Lactated 1,000 ML IVC SCH (09:15)
[2016-09-29] MEDS: *HR* Amiodarone 200 MG TABLET PO SCH (09:31)
[2016-09-29] MEDS ORDERED: Amiodarone Premix 360 MG/200 ML BAG IVC SCH (10:45)
[2016-09-29] MEDS: Metoprolol 100 MG TABLET PO SCH (11:31)
--- NOTE | 2016-09-29 14:31 | Pulmonology Consult Note ---
Date of Encounter: 09/29/16 Time of Encounter: 01:15 Assessment and Plan (1) Sepsis Current Visit: Yes Status: Acute Being treated with ceftriaxone currently Qualifiers: Sepsis type: sepsis due to unspecified organism Qualified Code(s): A41.9 - Sepsis, unspecified organism (2) Counseling regarding advanced care planning and goals of care Current Visit: Yes Status: Acute After discussions with the patient's daughter/POA, DNR CC was selected and she is interested in pursuing hospice care at this point (3) Abdominal pain Current Visit: Yes Status: Acute Patient abdominal pain due to likely gallbladder versus hepatic mass seen on CT examination, unlikely due to acute cholecystitis but possible. Given patient's current comorbidities the prospect of general surgery is not recommended, the patient's POA has elected instead for less invasive approaches. Interventional radiology was consulted to consider cholecystostomy tube, but did not feel that she was a good candidate at this time. Given patient's comorbid risk factors, and likelihood of gallbladder versus hepatic mass, patient's daughter/POA has elected for DNR CC and like to transition to hospice care Qualifiers: Abdominal location: unspecified location Qualified Code(s): R10.9 - Unspecified abdominal pain (4) Acute blood loss anemia Current Visit: Yes Status: Acute Patient presented with anemia of 10.7 and evidence of GI bleed. She was given 2 units PRBCs previously in hemoglobin has remained stable around 13 (5) ELYSE (acute kidney injury) Current Visit: Yes Status: Acute Patient presented with elevated serum creatinine decreased S1 and GFR Patient given gentle fluids given ejection fraction We will continue to monitor (6) Atrial fibrillation Current Visit: Yes Status: Acute Patient on amiodarone and metoprolol at home. Not anticoagulated and on aspirin. We will hold medications see the patient hypertension Will hold aspirin due to acute GI bleed Qualifiers: Atrial fibrillation type: chronic Qualified Code(s): I48.2 - Chronic atrial fibrillation (7) CHF (congestive heart failure) Current Visit: Yes Status: Acute EF of 30-35% We will watch fluids given Qualifiers: Congestive heart failure type: systolic Congestive heart failure chronicity : acute on chronic Qualified Code(s): I50.23 - Acute on chronic systolic ( congestive) heart failure (8) DVT prophylaxis Current Visit: Yes Status: Acute Prophylaxis: Pantoprazole twice a day GI prophylaxis: Deep ECGs Neuro/sedation: Confuse/delirium, acute metabolic encephalopathy due to medical issues Respiratory: No concerns this time Cardiovascular: CHF with ejection fraction 30-35%, Atrial fibrillation with RVR , amiodarone on hold due to patient hypotension Renal: Acute kidney injury, likely due to fluid status, elevated BUN GI: Presents with melanotic stools, nonbleeding duodenal ulcer found on EGD. Possible gallbladder first hepatic mass seen on CT examination. Surgery not desired given health conditions Fluid/Electrolytes: Hyperkalemia, asymptomatic, we will continue to monitor ID: Sepsis, likely source acute cholecystitis continuing on ceftriaxone Heme: Hemoglobin stable around 13, after 2 units PRBCs, suspected GI bleed Skin: History of psoriasis, scaly plaques on upper and lower extremities Disposition: Overall prognosis poor, POA has elected DNR CC, will attempt to transition to hospice care CODE STATUS: DNR CC History of Present Illness Consult date: 09/29/16 Requesting physician: Vlad Lieberman Reason for consult: other (Critical care, sepsis, hypertension, tachycardia) Chief complaint: GI bleed, possible acute cholecystitis History of present illness: Mrs. Waller is an 86-year-old female was admitted to the hospital on 09/27/16 due to generalized weakness, imbalance, and confusion. She has a history of atrial fibrillation on amiodarone, metoprolol, and aspirin (not anticoagulated) . CHF (last echo 09/28/16 showed EF of 30 at 35%), COPD dementia, CAD, hypothyroid, hypertension. Patient is confused at this time, so history is obtained through chart review. It was reported that she had been having melanotic stools and had been hypotensive. She was transfused 2 units PRBCs due to anemia of 10.7, after work her hemoglobin has remained stable at 13. She underwent CT examination of her abdomen on 09/27/16 that showed a heterogeneous appearance of her gallbladder wall is indistinct from liver parenchyma as well as an indistinct hyperdensity in the left hepatic lobe. She underwent upper endoscopy and colonoscopy on 09/28/16 that showed a nonbleeding duodenal ulcer. After which she received a liver ultrasound that showed cholelithiasis with wall thickening and suspected acute calculus cholecystitis. With all the patient's concurrent problems including reduced ejection fraction, acute kidney injury, and potential sepsis from acute cholecystitis, the patient's POA does not want to pursue general anesthesia and potential surgery and has elected for placement of a cholecystotomy tube, she was evaluated by interventional radiology who felt that she would not be a good candidate for cholecystotomy tube placement at this time. At admission she was also found to be hyperkalemic, have an elevated troponin, have elevated liver enzymes, have an acute kidney injury/kidney failure, and leukocytosis. She had previously been given Zosyn and vancomycin, Protonix drip , and fluids. Past Med Surg Social Fam HX - Past Medical History Medical history: atrial fibrillation, CHF, COPD, dementia, hypertension, myocardial infarction, thyroid disease Psychiatric history: anxiety, depression - Past Surgical History Surgical History: coronary bypass (CABG) - Social History Smoking Status: Never smoker Smokeless Tobacco Status: No Alcohol use: none Drug use: none - Family History Mother Hx Family Cancer: Yes (uterine cancer) Medications and Allergies Alprazolam [Xanax 0.25 MG Tablet] 0.25 mg PO BID PRN 09/27/16 [History] Amiodarone [Cordarone] 100 mg PO DAILY 09/27/16 [History] Amlodipine [Norvasc] 5 mg PO DAILY 09/27/16 [History] Aspirin [Lo-Dose Aspirin EC] 81 mg PO DAILY 09/27/16 [History] Atorvastatin [Lipitor] 40 mg PO DAILY 09/27/16 [History] Ipratropium/Albuterol Neb [Duoneb] 3 ml IH Q6HR 09/27/16 [History] Levothyroxine [Synthroid] 50 mcg PO DAILY 09/27/16 [History] Lisinopril/Hydrochlorothiazide [Zestoretic 20-12.5 mg Tablet] 1 tab PO BID 09/27 [History] Metformin [Glucophage] 500 mg PO BID 09/27/16 [History] Metoprolol [Lopressor] 100 mg PO BID 09/27/16 [History] Oxygen 2 l .ROUTE AD 09/27/16 [History] Sertraline [Zoloft] 200 mg PO DAILY 09/27/16 [History] Allergies No Known Allergies Allergy (Verified 09/27/16 13:12) ROS unobtainable: due to mental status Physical Examination Vital Signs: Vital Signs, Last 4 Hours Temp Pulse Resp BP Pulse Ox 09/29/16 11:35 96.4 F L 09/29/16 10:45 113 20 88/65 95 Constitutional: A&Ox1, No acute distress, alert, expresses pain when moved, comfortable when unperturbed EENT: Sclera nonicteric, noninjected, oropharynx moist, neck supple, anterior cervical lymph nodes palpated Respiratory: Respirations nonlabored, Rales appreciated bilaterally Cardiovascular: Tachycardia, no murmurs/rubs/gallops appreciated Gastrointestinal: Hypoactive bowel sounds, soft, tender to palpation in right upper and left upper quadrants, nondistended, hepatomegaly with border of liver extending or 5 cm below costal margin Integumentary: No erythema, scaly appearing plaques located on the anterior surfaces of lower and upper extremities, no pallor appreciated, capillary refill < 2 seconds, skin turgor normal Extremities: No cyanosis, no edema, no clubbing, pink and warm, pulses present and equal bilaterally Musculoskeletal: No deformities Neurologic: Confused, somewhat somnolent, nonfocal exam, pupils equal round reactive to light bilaterally Psychiatric: A&Ox1, pleasant Results - Laboratory Findings CBC and BMP: 09/29/16 02:37 09/29/16 02:37 PT/INR, D-dimer PT 17.9 Seconds (9.4-12.1) H 09/27/16 13:50 Abnormal lab findings: Abnormal lab results WBC 14.6 K/mcL (4.3-11.1) H 09/29/16 02:37 RBC 5.01 M/mcL (3.82-4.97) H 09/29/16 02:37 MCV 81.2 fL (83.0-100.0) L 09/29/16 02:37 MCH 25.5 pg (28.0-33.3) L 09/29/16 02:37 MCHC 31.4 g/dL (31.6-35.5) L 09/29/16 02:37 RDW 18.3 % (11.5-14.5) H 09/29/16 02:37 Plt Count 115 K/mcL (140-400) L 09/29/16 02:37 Neutrophils # 17.1 K/mcL (1.6-8.9) H 09/28/16 02:23 Nucleated RBCs/100 WBC 0.3 /100 WBC (0) H 09/28/16 02:23 Immature Plt Fraction 7.2 % (1.1-6.1) H 09/28/16 02:23 PT 17.9 Seconds (9.4-12.1) H 09/27/16 13:50 Potassium 4.9 mEq/L (3.5-4.5) H 09/29/16 02:37 Chloride 112 mEq/L (98-109) H 09/29/16 02:37 Carbon Dioxide 17 mEq/L (19-29) L 09/29/16 02:37 BUN 110 mg/dL (7-20) H 09/29/16 02:37 Creatinine 3.16 mg/dL (0.57-1.11) H 09/29/16 02:37 Est GFR ( Amer) 17 (> 60) L 09/29/16 02:37 Est GFR (Non-Af Amer) 14 (> 60) L 09/29/16 02:37 BUN/Creatinine Ratio 35 (6-26) H 09/29/16 02:37 Glucose 132 mg/dL (70-99) H 09/29/16 02:37 POC Glucose 161 (58-89) H 09/27/16 17:40 Calculated Osmolality 329 (280-300) H 09/29/16 02:37 Calcium 8.3 mg/dL (8.6-10.8) L 09/29/16 02:37 Phosphorus 4.8 mg/dL (2.3-4.7) H 09/28/16 02:23 Iron 25 mcg/dL (50-170) L 09/28/16 12:56 % Saturation 7 % (15-50) L 09/28/16 12:56 Total Bilirubin 1.8 mg/dL (0.2-1.2) H 09/29/16 02:37 Direct Bilirubin 1.3 mg/dL (0.0-0.5) H 09/28/16 02:23 AST 171 Units/L (5-34) H 09/29/16 02:37 ALT 84 Units/L (0-55) H 09/29/16 02:37 Troponin I 0.04 ng/mL (0-0.03) H* 09/27/16 13:50 Serum Total Protein 5.9 g/dL (6.0-8.3) L 09/29/16 02:37 Albumin 2.2 g/dL (3.5-5.0) L 09/29/16 02:37 Globulin 3.7 g/dL (2.4-3.5) H 09/29/16 02:37 Albumin/Globulin Ratio 0.6 (1.1-2.2) L 09/29/16 02:37 Urine Clarity Cloudy (Clear) A 09/27/16 15:13 Urine Bilirubin Small (Negative) H 09/27/16 15:13 Ur Leukocyte Esterase Small (Negative) H 09/27/16 15:13 Urine Microscopic RBC 3-5 per hpf (0-3) H 09/27/16 15:13 Urine Microscopic WBC 5-15 per hpf (0-3) H 09/27/16 15:13 Ur Squamous Epith Cells Many per lpf (None-Few) H 09/27/16 15:13 Ur Culture Indicated? YES (NO) A 09/27/16 15:13 Stool Occult Blood Positive (Negative) A 09/27/16 15:41 - Clinical Findings Intake & Output: Intake & Output 09/28/16 09/29/16 09/29/16 23:59 07:59 15:59 Intake Total 1550 / 1550 100 / 100 1480 / 1480 Output Total 0 / 0 100 / 100 50 / 50 Balance 1550 / 1550 0 / 0 1430 / 1430 Consult Discharge Plan - Plan Referrals: NO,PCP [Primary Care Provider] -
--- NOTE | 2016-09-29 14:32 | Palliative - Consult Note ---
Date of Encounter: 09/29/16 Time of Encounter: 14:30 - Assessment and Plan (1) Abdominal pain Current Visit: Yes Status: Acute Assessment and plan: Patient appears comfortable as rest. Does grimace occasionally with abdominal assessment. In review of MAR, she does have low dose Morphine ordered, however , is quite hypotensive at this time, and may need changed to low dose Fentanyl r /t renal function. Continues with diagnostic assessment of clinical issues. Qualifiers: Abdominal location: unspecified location Qualified Code(s): R10.9 - Unspecified abdominal pain (2) Counseling regarding advanced care planning and goals of care Current Visit: Yes Status: Acute Assessment and plan: Patient is confused and discussion with daughter held via telephone. Natalee is pt only daughter, many years ago. Natalee states pt was independent, living alone, and has had increasing confusion over the past couple of weeks. She refused to go to doctor until had evidence of bleeding. Code status has already been addressed and daughter confirms DNR/DNI. Discussed current clinical situation with daughter. She desires conservative treatment, and would consent to biliary drainage tube and continuation of antibiotics for cholecystitis and treatment of UTI to see if she improves. Daughter aware of ELYSE as well as hypotension, hypothermia and low EF. She is hoping her mother responds to treatment, however, she understands she is critically ill. If pt conditions would continue to decline, daughter states she is open to hospice care. (3) ELYSE (acute kidney injury) Current Visit: Yes Status: Acute (4) Acute blood loss anemia Current Visit: Yes Status: Acute (5) Sepsis Current Visit: Yes Status: Acute Qualifiers: Sepsis type: sepsis due to unspecified organism Qualified Code(s): A41.9 - Sepsis, unspecified organism (6) Cholecystitis with cholelithiasis Current Visit: Yes Status: Acute Qualifiers: Cholelithiasis location: gallbladder Cholecystitis acuity: acute Biliary obstruction: without biliary obstruction Qualified Code(s): K80.00 - Calculus of gallbladder with acute cholecystitis without obstruction Palliative-CN HPI - Data of Consult Consult date: 09/29/16 Requesting Physician: Tyshawn Rios Primary Care Provider: PCP NO - Consult Narrative History of present illness: Ms. Waller is a 86 year old female who was admitted with GI bleed. Patient is confused and her daughter Natalee providing information over the phone. She states that pt has been on a decline over the past 2 weeks with increasing confusion, decreased appetite. Daughter states that she has been visiting pt more often and helping with meals. States pt refused to see physician, until started having black tarry stools. Prior to the last few weeks, she stated pt lived alone and was independent. GI was consulted and scoped revealed non bleeding ulcer. She has ELYSE as well and Echocardiogram revealed EF of 30-35%. Urine culture is positive with sensitivity pending, and pt also found to have cholecystitis on liver ultrasound. She is DNR/DNI per discussion with daughter. Currently being treated with IV atb and supportive care. CC: Tyshawn Rios Past Med Surg Social Fam HX - Past Medical History Medical history: atrial fibrillation, CHF, COPD, dementia, hypertension, myocardial infarction, thyroid disease Psychiatric history: anxiety, depression - Past Surgical History Surgical History: coronary bypass (CABG) - Social History Smoking Status: Never smoker Smokeless Tobacco Status: No Alcohol use: none Drug use: none - Family History Mother Hx Family Cancer: Yes (uterine cancer) Medications and Allergies Alprazolam [Xanax 0.25 MG Tablet] 0.25 mg PO BID PRN 09/27/16 [History] Amiodarone [Cordarone] 100 mg PO DAILY 09/27/16 [History] Amlodipine [Norvasc] 5 mg PO DAILY 09/27/16 [History] Aspirin [Lo-Dose Aspirin EC] 81 mg PO DAILY 09/27/16 [History] Atorvastatin [Lipitor] 40 mg PO DAILY 09/27/16 [History] Ipratropium/Albuterol Neb [Duoneb] 3 ml IH Q6HR 09/27/16 [History] Levothyroxine [Synthroid] 50 mcg PO DAILY 09/27/16 [History] Lisinopril/Hydrochlorothiazide [Zestoretic 20-12.5 mg Tablet] 1 tab PO BID 09/27 [History] Metformin [Glucophage] 500 mg PO BID 09/27/16 [History] Metoprolol [Lopressor] 100 mg PO BID 09/27/16 [History] Oxygen 2 l .ROUTE AD 09/27/16 [History] Sertraline [Zoloft] 200 mg PO DAILY 09/27/16 [History] Allergies No Known Allergies Allergy (Verified 09/27/16 13:12) ROS unobtainable: due to mental status Palliative Care-Exam - Constitutional Vitals: Temp Pulse Resp BP Pulse Ox 96.4 F L 113 20 88/65 95 09/29/16 11:35 09/29/16 10:45 09/29/16 10:45 09/29/16 10:45 09/29/16 10:45 General appearance: Present: no acute distress - Head Head Exam: Present: normal inspection, normocephalic - Eye Eye exam: Present: normal appearance - Respiratory Additional comments: Breath sounds diminished lower lobes, faint expiratory wheezes noted - Cardiovascular Cardiovascular exam: Present: irregular rhythm - GI/Abdominal Exam GI/Abdominal exam: Present: normal bowel sounds, soft additional comments: RUQ firmess noted - Catheter Type: Urethral (Nelson) Additional comments: Urine shahzad in color. - Extremities Exam Extremities exam: Present: normal capillary refill, normal inspection - Neurological Exam Additional comments: Patient responds to questions with eyes closed. Oriented to name only. Answers most questions "yes". - Skin Skin exam: Present: dry, pallor, warm Additional comments: round reddened lesions to legs, trunk and arms. Internal Medicine - CN: Reslt - Labs CBC & Chem 7: 09/29/16 02:37 09/29/16 02:37 Labs: Short CBC 09/28/16 09/29/16 Range/Units 16:11 02:37 WBC 14.6 H (4.3-11.1) K/mcL Hgb 13.0 12.8 (11.5-15.4) g/dL Hct 42.2 40.7 (35.3-44.9) % Plt Count 115 L (140-400) K/mcL BMP 09/29/16 02:37 Sodium 141 Potassium 4.9 H Chloride 112 H Carbon Dioxide 17 L BUN 110 H Creatinine 3.16 H Glucose 132 H Calcium 8.3 L Liver Function 09/29/16 Range/Units 02:37 Total Bilirubin 1.8 H (0.2-1.2) mg/dL AST 171 H (5-34) Units/L ALT 84 H (0-55) Units/L Alkaline Phosphatase 79 (38-126) Units/L Albumin 2.2 L (3.5-5.0) g/dL - ABG Interpretation ABG results: PT/INR, D-dimer PT 17.9 Seconds (9.4-12.1) H 09/27/16 13:50 - Impressions Impressions Liver Ultrasound 09/28/16 18:00 IMPRESSION: Cholelithiasis with wall thickening suspected acute calculus cholecystitis. D/ / Dewayne Bergman MD / Dewayne Bergman MD Interpreting Provider: Dewayne Bergman MD Consult Discharge Plan - Plan Referrals: NO,PCP [Primary Care Provider] - Palliative Quality Palliative Quality: Screen for Code Status: Yes, Screen for Goals of Care: Yes, Screen for Pain: NA (pt confused), If Pain Regimen Started, Initiate Bowel Regimen: NA (liquid stools), Screen for Nausea/Vomitting: NA (pt confused) Code Status: 09/27/16 17:25 Resuscitation Status: Active [RES] Routine Comment: Resuscitation Status: [id number]
--- NOTE | 2016-09-29 14:36 | Event Note ---
Date of Encounter: 09/29/16 Time of Encounter: 14:28 Patient examined, chart and all data reviewed as well as recent imaging studies. This elderly female with a very poor performance status minutes to the intensive care unit with hypotension. Given concern for passage of one per rectum, initially, the patient was thought to have hemorrhagic shock however, the hemoglobin values determined serially did not suggest continued loss of blood to any substantial degree and furthermore, the EGD was performed which was essentially unremarkable. Overnight, the patient continued to remain hypotensive and nearly and uric. Upon examination, the patient does seemingly have right upper quadrant discomfort to deep palpation however her examination is quite limited her mental status. Patient was arousable to examination remains hypotensive however her mean blood pressures approximately 83 she is me 63 mmHg her heart rate is approximately 108 118 (A. fib). She has generalized edema, she is hypothermic, mild abdominal discomfort is noted chest exam reveals reduced breath sounds at the bases with crackles and her extremities were cool. Laboratory data reveals mild anion gap acidosis renal dysfunction likely due to AK I (hemodynamically mediated ATN). Hemoglobin is stable at approximately 10 g /dL (note that the patient did receive 2 units of packed red cells) and a moderate leukocytosis is noted. Imaging studies of the abdomen revealed bilateral pleural effusions, right lower lung zone atelectasis and cardiomegaly, complex appearance to the right lobe of the liver with a suggestion of perhaps a mass as opposed to significantly enlarged gallbladder. The patient will be maintained with antibiotic therapy for treatment of possible cholecystitis. Ideally, the patient should undergo a cholecystotomy tube however I reviewed the situation with the radiology physician ( interventional radiologist) who feels that the small lumen visible with scanning of the gallbladder would not be accessible to drainage and his concern is that the majority of the abnormality may be due to infiltrating malignant process. The daughter of this individual has elected for the patient to receive conservative medical measures only. She is not to receive resuscitation intubation and pressors and will be maintained with conservative antibiotic measures for treatment of reported cholecystitis. I anticipate that this patient will likely not survive over the next 48 hours in light of her current circumstances and her clinical illness. [facility] [phone]
--- NOTE | 2016-09-29 14:38 | IR Progress Note ---
Vital Signs: Vital Signs/O2 Sat, Most Current Temp Pulse Resp BP Pulse Ox 96.4 F L 99 20 78/57 94 L 09/29/16 11:35 09/29/16 11:45 09/29/16 11:45 09/29/16 11:45 09/29/16 11:45 Recent Labs: Lab Results 09/29/16 09/29/16 09/29/16 11:08 02:37 02:37 WBC 14.6 H RBC 5.01 H Hgb 12.8 Hct 40.7 MCV 81.2 L MCH 25.5 L MCHC 31.4 L RDW 18.3 H Plt Count 115 L MPV 11.2 Neutrophils # Lymphocytes # Monocytes # Eosinophils # Basophils # Sodium 141 Potassium 4.9 H Chloride 112 H Carbon Dioxide 17 L BUN 110 H Creatinine 3.16 H Est GFR ( Amer) 17 L Est GFR (Non-Af Amer) 14 L BUN/Creatinine Ratio 35 H Glucose 132 H Lactic Acid 1.3 Calcium 8.3 L Phosphorus Magnesium 09/28/16 09/28/16 09/28/16 16:11 02:23 02:23 WBC 19.7 H RBC 5.30 H Hgb 13.0 13.5 Hct 42.2 43.7 MCV 82.5 L MCH 25.5 L MCHC 30.9 L RDW 17.4 H Plt Count 126 L MPV 11.0 Neutrophils # 17.1 H Lymphocytes # 1.2 Monocytes # 1.2 Eosinophils # 0.0 Basophils # 0.0 Sodium 140 Potassium 5.5 H Chloride 110 H Carbon Dioxide 16 L BUN 108 H Creatinine 3.24 H Est GFR ( Amer) 16 L Est GFR (Non-Af Amer) 14 L BUN/Creatinine Ratio 33 H Glucose 165 H Lactic Acid Calcium 8.4 L Phosphorus 4.8 H Magnesium 1.8 09/27/16 09/27/16 22:21 19:35 WBC RBC Hgb 13.8 D Hct 44.0 MCV MCH MCHC RDW Plt Count MPV Neutrophils # Lymphocytes # Monocytes # Eosinophils # Basophils # Sodium Potassium Chloride Carbon Dioxide BUN Creatinine Est GFR ( Amer) Est GFR (Non-Af Amer) BUN/Creatinine Ratio Glucose Lactic Acid 1.9 Calcium Phosphorus Magnesium Assessment and Plan Quick VIR note: Consulted for cholecystostomy drain placement. I evaluated the CT, as well as u/ s imaging studies. There is a large presumably partially calcified stone in the GB, but very marked GB wall thickening. This could potentially be related to a gallbladder wall mass, or severe cholecystitis. Unfortunately, between the very thickened wall, and the stone, these have nearly obliterated the gallbladder lumen, to the point that I don't feel a drain would able to be successfully placed. I discussed with two other VIR physicians here at [facility] today as well, who all feel similar. We will hold off for now regarding any IR intervention for cholecystitis. I discussed this with the Pulmonary/CC attending, who is in agreement with this. Thanks, Abraham Rodriguez MD VIR Staff
[2016-09-29] MEDS ORDERED: *HR* LORazepam 2 MG/ML VIAL IVP PRN (15:27)
[2016-09-29] MEDS ORDERED: *HR* Morphine 2 MG/ML SYRINGE IV PRN (15:29)
--- NOTE | 2016-09-29 15:40 | Event Note ---
Date of Encounter: 09/29/16 Time of Encounter: 15:35 I met with patient's daughter, reviewed the patient's clinical course to date ( note persistently hypotensive, anuric) and reviewed the findings of the abdominal CT scan worrisome not only for cholecystitis but possibly biliary tract malignancy (as discussed with IR physician). In light of the patient's clinical status, advanced age the daughter wishes to transition care to comfort measures only/Hospice. Medications ordered for enhanced comfort and if possible, the patient will be transferred to inpatient Hospice. Jason
--- NOTE | 2016-09-29 15:48 | Event Note ---
Date of Encounter: 09/29/16 Time of Encounter: 15:45 Transition to comfort care per DR. Gomez after discussing with pt daughter as pt continuing to decline. D/W Dr. Gomez - pt to transition to inpt hospice care if they are available to complete admission today. Awaiting return call
--- NOTE | 2016-09-29 16:03 | Discharge Summary ---
Date of Encounter: 09/29/16 Time of Encounter: 13:10 - Discharge Diagnosis (1) Sepsis Priority: Primary Status: Acute Qualifiers: Sepsis type: sepsis due to unspecified organism Qualified Code(s): A41.9 - Sepsis, unspecified organism (2) Counseling regarding advanced care planning and goals of care Priority: Primary Status: Acute (3) Abdominal pain Priority: Primary Status: Acute Qualifiers: Abdominal location: unspecified location Qualified Code(s): R10.9 - Unspecified abdominal pain (4) Acute blood loss anemia Priority: Primary Status: Acute (5) ELYSE (acute kidney injury) Priority: Primary Status: Acute (6) Atrial fibrillation Priority: Primary Status: Acute Qualifiers: Atrial fibrillation type: chronic Qualified Code(s): I48.2 - Chronic atrial fibrillation (7) CHF (congestive heart failure) Priority: Primary Status: Acute Qualifiers: Congestive heart failure type: systolic Congestive heart failure chronicity : acute on chronic Qualified Code(s): I50.23 - Acute on chronic systolic ( congestive) heart failure (8) DVT prophylaxis Priority: Secondary Status: Acute - Discharge Medications Home Medications: Alprazolam [Xanax 0.25 MG Tablet] 0.25 mg PO BID PRN 09/27/16 [History] Amiodarone [Cordarone] 100 mg PO DAILY 09/27/16 [History] Amlodipine [Norvasc] 5 mg PO DAILY 09/27/16 [History] Aspirin [Lo-Dose Aspirin EC] 81 mg PO DAILY 09/27/16 [History] Atorvastatin [Lipitor] 40 mg PO DAILY 09/27/16 [History] Ipratropium/Albuterol Neb [Duoneb] 3 ml IH Q6HR 09/27/16 [History] Levothyroxine [Synthroid] 50 mcg PO DAILY 09/27/16 [History] Lisinopril/Hydrochlorothiazide [Zestoretic 20-12.5 mg Tablet] 1 tab PO BID 09/27 [History] Metformin [Glucophage] 500 mg PO BID 09/27/16 [History] Metoprolol [Lopressor] 100 mg PO BID 09/27/16 [History] Oxygen 2 l .ROUTE AD 09/27/16 [History] Sertraline [Zoloft] 200 mg PO DAILY 09/27/16 [History] Allergies/Adverse Reactions: Allergies No Known Allergies Allergy (Verified 09/27/16 13:12) Labs on day of discharge: Labs from last 24 hours 09/29/16 09/29/16 09/29/16 11:08 02:37 02:37 WBC RBC Hgb Hct MCV MCH MCHC RDW Plt Count MPV Sodium 141 Potassium 4.9 H Chloride 112 H Carbon Dioxide 17 L BUN 110 H Creatinine 3.16 H Est GFR ( Amer) 17 L Est GFR (Non-Af Amer) 14 L BUN/Creatinine Ratio 35 H Glucose 132 H Calculated Osmolality 329 H Lactic Acid 1.3 Calcium 8.3 L Total Bilirubin 1.8 H AST 171 H ALT 84 H Alkaline Phosphatase 79 Serum Total Protein 5.9 L Albumin 2.2 L Globulin 3.7 H Albumin/Globulin Ratio 0.6 L Random Vancomycin 9.7 09/29/16 09/28/16 02:37 16:11 WBC 14.6 H RBC 5.01 H Hgb 12.8 13.0 Hct 40.7 42.2 MCV 81.2 L MCH 25.5 L MCHC 31.4 L RDW 18.3 H Plt Count 115 L MPV 11.2 Sodium Potassium Chloride Carbon Dioxide BUN Creatinine Est GFR ( Amer) Est GFR (Non-Af Amer) BUN/Creatinine Ratio Glucose Calculated Osmolality Lactic Acid Calcium Total Bilirubin AST ALT Alkaline Phosphatase Serum Total Protein Albumin Globulin Albumin/Globulin Ratio Random Vancomycin - Impressions ITS Impressions Liver Ultrasound 09/28/16 18:00 IMPRESSION: Cholelithiasis with wall thickening suspected acute calculus cholecystitis. D/ / Dewayne Bergman MD / Dewayne Bergman MD Interpreting Provider: Dewayne Bergman MD Date of admission: 09/27/16 16:31 Primary care physician: PCP NO Consults: 09/27/16 17:53 Consult to Immunology Specialist [CONS] Routine Reason for SW Consult: daughter Natalee would like to talk about POA 09/29/16 10:31 Consult to Palliative Care [CONS] Routine Comment: goal of care. Unable to contact family this AM. Consulting Provider: Palliative Care Steph 09/29/16 11:50 Consult to Critical Care [CONS] Routine Consulting Provider: Pulm Crit Care & Sleep Steph Reason for Consult: sepsis/ hypotension. Critical care management. thank you for your assistance. Call Completed: Yes 09/29/16 14:19 Consult to Interventional Radiology [CONS] Routine Consulting Provider: Sharon Gómez Reason for Consult: Need for Gallbladder tube. Call Completed: Yes Discharging clinician: Vlad Lieberman Anticipated date of discharge: 09/29/16 - Patient Status Disposition: Hospice - Medical Facility Condition: Critical Functional capacity at discharge: bed bound Overall status at discharge: patient is not back to baseline - Discharge Instructions Follow Up With: NO,PCP [Primary Care Provider] - Additional Instructions: Transition to hospice care - Diet and Activity Activity: other Diet: advance to your usual diet - Hospital Course Hospital course: Mrs. Waller is an 86-year-old female was admitted to the hospital on 09/27/16 due to generalized weakness, imbalance, and confusion. She has a history of atrial fibrillation on amiodarone, metoprolol, and aspirin (not anticoagulated) . CHF (last echo 09/28/16 showed EF of 30 at 35%), COPD dementia, CAD, hypothyroid, hypertension. It was reported that she had been having melanotic stools and had been hypotensive. She was transfused 2 units PRBCs due to anemia of 10.7, after work her hemoglobin has remained stable at 13. She underwent CT examination of her abdomen on 09/27/16 that showed a heterogeneous appearance of her gallbladder wall is indistinct from liver parenchyma as well as an indistinct hyperdensity in the left hepatic lobe. She underwent upper endoscopy and colonoscopy on 09/28/16 that showed a nonbleeding duodenal ulcer. After which she received a liver ultrasound that showed cholelithiasis with wall thickening and suspected acute calculus cholecystitis. With all the patient's concurrent problems including reduced ejection fraction, acute kidney injury, and potential sepsis from acute cholecystitis, the patient's POA does not want to pursue general anesthesia and potential surgery and has elected for placement of a cholecystotomy tube, she was evaluated by interventional radiology who felt that she would not be a good candidate for cholecystotomy tube placement at this time. After discussions with the patient's daughter/POA in consideration of patient's clinical status and comorbidities, DNR CC was selected and she will be transitioned to hospice care. - Time Spent with Patient Total time spent providing and/or coordinating discharge services: Greater than 30 minutes Physical Examination Vital Signs: Vital Signs, Last 4 Hours Temp Pulse Resp BP Pulse Ox 09/29/16 15:33 96.4 F L 09/29/16 13:45 116 22 82/51 93 L 09/29/16 12:45 110 21 88/66 93 L Constitutional: A&Ox1, No acute distress, alert, expresses pain when moved, comfortable when unperturbed EENT: Sclera nonicteric, noninjected, oropharynx moist, neck supple, anterior cervical lymph nodes palpated Respiratory: Respirations nonlabored, Rales appreciated bilaterally Cardiovascular: Tachycardia, no murmurs/rubs/gallops appreciated Gastrointestinal: Hypoactive bowel sounds, soft, tender to palpation in right upper and left upper quadrants, nondistended, hepatomegaly with border of liver extending or 5 cm below costal margin Integumentary: No erythema, scaly appearing plaques located on the anterior surfaces of lower and upper extremities, no pallor appreciated, capillary refill < 2 seconds, skin turgor normal Extremities: No cyanosis, no edema, no clubbing, pink and warm, pulses present and equal bilaterally Musculoskeletal: No deformities Neurologic: Confused, somewhat somnolent, nonfocal exam, pupils equal round reactive to light bilaterally Psychiatric: A&Ox1, pleasant
--- NOTE | 2016-09-29 17:45 | Electrocardiograph Report ---
[address] [address] Test Date: 2016-09-27 Pat Name: Romi Waller Department: 104 Room: [facility] Gender: F Physician Surgeon: : [id number] Requested By: Michael Flores Order Number: [id number] Reading MD: Jaquelin Alanis Measurements Intervals [place] Rate: 105 P: NV: 0 QRS: 43 QRSD: 134 T: 214 QT: 370 QTc: 431 Interpretive Statements ATRIAL FIBRILLATION WITH RAPID VENTRICULAR RESPONSE INTRAVENTRICULAR CONDUCTION DELAY Electronically Signed On 09-29-2016 17:44:16 EST by Jaquelin Alanis
[2016-09-29] MEDS ORDERED: Aminoglycoside Consult 1 EACH MC ONE (17:54)
[2016-09-29] MEDS ORDERED: Pantoprazole 40 MG VIAL IVP SCH (18:00)
[2016-09-29 18:05] VITALS: BP 82/58
[2016-09-30 08:17] LABS: AFP Tumor Marker Non-Pregnant 4 ng/mL (0-9); Alpha-1-Antitrypsin 223 mg/dL (90-200); Ceruloplasmin 34 mg/dL (17-54)
[2016-09-30 08:22] LABS: Myeloperoxidase Ab 3 AU/mL (0-19); Serine Protease-3 Antibody 0 AU/mL (0-19)
[2016-09-30] MEDS ORDERED: Amiodarone Premix 360 MG/200 ML BAG IVC SCH (09:00)
[2016-09-30 15:10] LABS: ANA IgG by ELISA NONE DETECTED (None Detected)
[2016-09-30 15:11] LABS: F-Actin (sm muscle) Ab IgG 41 Units (0-19)
[2016-10-02 07:40] LABS: Smooth Muscle Ab Titer IgG <1:20 (<1:20)
== END 2016-09-29 17:55 | disposition hospice, inpatient (51) | DRG 377 ==
LOC: EMEROO 12:53 → SUATTDRO 16:31 → ICNU 16:31
PROVIDERS: ADMIT Internal Medicine; ATTEND Internal Medicine
PROC: ENDOEBX (2016-09-28 13:30)

== ENCOUNTER 2016-09-29 15:55 | Inpatient (IN) ==
[2016-09-29] MEDS ORDERED: Atropine Sulfate 1% 40 DROP/2 ML BOTTLE SL PRN (16:10)
[2016-09-29] MEDS ORDERED: Bisacodyl 10 MG RECTAL SUPPOSITORY RC PRN (16:10)
[2016-09-29] MEDS ORDERED: *HR* Morphine 2 MG/ML SYRINGE IVP PRN (16:10)
[2016-09-29] MEDS ORDERED: Haloperidol Lactate 5 MG/ML VIAL IVP PRN (16:10)
[2016-09-29] MEDS ORDERED: *HR* LORazepam 2 MG/ML VIAL IVP PRN (16:10)
--- NOTE | 2016-09-29 16:19 | Palliative - Consult Note ---
Date of Encounter: 09/29/16 Time of Encounter: 16:30 - Assessment and Plan (1) Counseling regarding advanced care planning and goals of care Status: Acute Assessment and plan: Patient will be admitted to [facility] for end of life care. It is doubtful she will survive inpatient stay. Daughter aware and agreeable with plan. Desires comfort care only. (2) Abdominal pain Status: Acute Assessment and plan: Low dose Morphine scheduled for comfort as well as PRN. Titrate as needed Qualifiers: Abdominal location: right upper quadrant Qualified Code(s): R10.11 - Right upper quadrant pain (3) Anxiety Status: Acute Assessment and plan: IV Ativan PRN and monitor. (4) Airway clearance impairment Status: Acute Assessment and plan: Atropine drops PRN. (5) ELYSE (acute kidney injury) Status: Acute (6) Cholecystitis with cholelithiasis Status: Acute Qualifiers: Cholelithiasis location: gallbladder Cholecystitis acuity: acute Biliary obstruction: without biliary obstruction Qualified Code(s): K80.00 - Calculus of gallbladder with acute cholecystitis without obstruction (7) Sepsis Status: Acute Qualifiers: Sepsis type: sepsis due to unspecified organism Qualified Code(s): A41.9 - Sepsis, unspecified organism Palliative-CN HPI - Data of Consult Requesting Physician: Orion Bowser MD - Consult Narrative History of present illness: Ms. Waller is a 86 year old female who was admitted to [facility] hospice following a brief hospital stay. She was originally admitted for GI bleed and found to have nonbleeding ulcer. With further testing, she was positive for UTI, echocardiogram with decreased EF of 30-35%, liver ultrasound which demonstrated thickening and acute cholecystitis. She was poor surgical candidate, - with daughters consent, interventional radiology was consulted for bili drain and plan was to continue treatment of sepsis. Upon IR evaluation of the patient, was felt that this was possible Gallbladder mass, and size and obstruction of duct would not allow for placement of drain. Throughout the day today and during testing, pt became further hypotensive, less responsive, and urine output diminished greatly. Discussions were held with pt daughter, Natalee, and she decided to transition to comfort care only and desired admission to hospice. She is currently enrolled in [facility] hosp[facility] for symptom management. CC: Orion Bowser MD Past Med Surg Social Fam HX - Past Medical History Medical history: atrial fibrillation, CHF, COPD, dementia, hypertension, myocardial infarction, thyroid disease Psychiatric history: anxiety, depression - Past Surgical History Surgical History: coronary bypass (CABG) - Social History Smoking Status: Never smoker Smokeless Tobacco Status: No Alcohol use: none Drug use: none - Family History Mother Hx Family Cancer: Yes (uterine cancer) Medications and Allergies Alprazolam [Xanax 0.25 MG Tablet] 0.25 mg PO BID PRN 09/27/16 [History] Amiodarone [Cordarone] 100 mg PO DAILY 09/27/16 [History] Amlodipine [Norvasc] 5 mg PO DAILY 09/27/16 [History] Aspirin [Lo-Dose Aspirin EC] 81 mg PO DAILY 09/27/16 [History] Atorvastatin [Lipitor] 40 mg PO DAILY 09/27/16 [History] Ipratropium/Albuterol Neb [Duoneb] 3 ml IH Q6HR 09/27/16 [History] Levothyroxine [Synthroid] 50 mcg PO DAILY 09/27/16 [History] Lisinopril/Hydrochlorothiazide [Zestoretic 20-12.5 mg Tablet] 1 tab PO BID 09/27 [History] Metformin [Glucophage] 500 mg PO BID 09/27/16 [History] Metoprolol [Lopressor] 100 mg PO BID 09/27/16 [History] Oxygen 2 l .ROUTE AD 09/27/16 [History] Sertraline [Zoloft] 200 mg PO DAILY 09/27/16 [History] Allergies No Known Allergies Allergy (Verified 09/27/16 13:12) ROS unobtainable: due to mental status Palliative Care-Exam - Constitutional General appearance: Present: mild distress - Head Head Exam: Present: normal inspection, normocephalic - Respiratory Respiratory exam: Present: decreased breath sounds Additional comments: faint expiratory wheezes throughout - Cardiovascular Cardiovascular exam: Present: irregular rhythm - GI/Abdominal Exam GI/Abdominal exam: Present: normal bowel sounds, soft additional comments: Firm mass noted on palpation to RUQ extending approx 3-4 inches below right lower ribs - Catheter Type: Urethral (Nelson) Additional comments: Urine light shahzad - Extremities Exam Extremities exam: Present: normal capillary refill, normal inspection - Neurological Exam Additional comments: Alert, oriented to name only. Does not follow commands. BISHOP - Skin Skin exam: Present: dry, pallor, warm Palliative Quality Palliative Quality: Screen for Code Status: Yes, Screen for Goals of Care: Yes, Screen for Pain: Yes, If Pain Regimen Started, Initiate Bowel Regimen: Yes, Screen for Nausea/Vomitting: Yes Code Status: 09/29/16 16:10 Resuscitation Status: Active [RES] Routine Comment: Resuscitation Status: DNR-Comfort Care
[2016-09-29] MEDS: *HR* Morphine 2 MG/ML SYRINGE IVP SCH (22:01)
[2016-09-30] MEDS: *HR* Morphine 2 MG/ML SYRINGE IVP SCH ×2 (06:09→09:03)
--- NOTE | 2016-09-30 09:37 | Palliative Progress Note ---
Date of Encounter: 09/30/16 Time of Encounter: 09:30 - Assessment and plan (1) Counseling regarding advanced care planning and goals of care Current Visit: Yes Status: Acute (2) Abdominal pain Current Visit: Yes Status: Acute Assessment and plan: Has required little Morphine and has refused scheduled doses. She appears more stable this am than yesterday. Will transition to Hydromorphone as she had acute kidney injury to avoid complications from metabolites. Qualifiers: Abdominal location: right upper quadrant Qualified Code(s): R10.11 - Right upper quadrant pain (3) Anxiety Current Visit: Yes Status: Acute Assessment and plan: Continue Ativan PRN and monitor (4) Airway clearance impairment Current Visit: Yes Status: Acute Assessment and plan: Atropine PRN. (5) ELYSE (acute kidney injury) Current Visit: No Status: Acute (6) Cholecystitis with cholelithiasis Current Visit: No Status: Acute Qualifiers: Cholelithiasis location: gallbladder Cholecystitis acuity: acute Biliary obstruction: without biliary obstruction Qualified Code(s): K80.00 - Calculus of gallbladder with acute cholecystitis without obstruction (7) Sepsis Current Visit: No Status: Acute Qualifiers: Sepsis type: sepsis due to unspecified organism Qualified Code(s): A41.9 - Sepsis, unspecified organism - Time Spent With Patient Total time spent is greater than 50% in coordination of care (as documented) at patient's floor/unit and/or counseling patient: - Subjective Interval history: Patient awake, confused. Pleasant. Does not answer questions appropriately. Does states she is not having any pain and states "yes" when I ask her if she if hungry. Ate 3/4 cream of wheat, oj, some coffee. Frequent belching noted. Vital signs stable. Does not appear to be any distress - Constitutional General appearance: Present: no acute distress - Respiratory Respiratory exam: Present: decreased breath sounds, CTAB - Cardiovascular Cardiovascular exam: Present: irregular rhythm - GI/Abdominal GI/Abdominal exam: Present: diminished bowel sounds Additional comments: Firmness noted extending approx 3-4 inches below right ribs - Extremities Exam Extremities exam: Present: normal capillary refill, normal inspection - Skin Skin exam: Present: dry, pallor, warm Additional comments: Round lesions scattered over trunk arms/legs and scalp. Palliative Quality Palliative Quality: Screen for Code Status: Yes, Screen for Goals of Care: Yes, Screen for Pain: Yes, If Pain Regimen Started, Initiate Bowel Regimen: Yes, Screen for Nausea/Vomitting: Yes Code Status: 09/29/16 16:10 Resuscitation Status: Active [RES] Routine Comment: Resuscitation Status: DNR-Comfort Care
[2016-09-30] MEDS: *HR* HYDROmorphone 2 MG/ML SYRINGE IVP PRN (18:27)
[2016-10-01] MEDS: *HR* HYDROmorphone 2 MG/ML SYRINGE IVP PRN ×4 (12:09→23:53)
[2016-10-01] MEDS ORDERED: ALPRAZolam 0.25 MG TABLET PO PRN (14:28)
[2016-10-01] MEDS ORDERED: *HR* FentaNYL PATCH 12 MCG PATCH TD SCH (14:30)
--- NOTE | 2016-10-01 14:36 | Palliative Progress Note ---
Date of Encounter: 10/01/16 Time of Encounter: 14:33 - Assessment and plan (1) Abdominal pain Current Visit: Yes Status: Acute Assessment and plan: Ms. Waller continues to shake head "no" when questioned about pain, but she has guarding of her abdomen and intermittent grunting respirations. Discussed case with her daughter. She has only used one dose of hydromorphone in the past 24 hours, by the request of her daughter. Following the dose of hydromorphone, she had more relaxed breathing and grunting subsided. Will add in low dose fentanyl patch for maintenance dose as the patient will likely decline pain medication according to her daughter. Discussed side effects of medications and benefits of treatment. Qualifiers: Abdominal location: right upper quadrant Qualified Code(s): R10.11 - Right upper quadrant pain (2) Airway clearance impairment Current Visit: Yes Status: Acute Assessment and plan: Atropine drops as needed. (3) Anxiety Current Visit: Yes Status: Acute Assessment and plan: Lorazepam as needed. Ms. Waller typically takes alprazolam at night when at home. Will add on the PRN alprazolam at HS in the event that she can take oral medications. Continue to monitor. (4) Counseling regarding advanced care planning and goals of care Current Visit: Yes Status: Acute Assessment and plan: Discussed case with hospice members and patient's daughter. Given the patient' s decline in health, she is not stable for discharge. Will continue to monitor and adjust therapy as necessary. (5) ELYSE (acute kidney injury) Current Visit: No Status: Acute Assessment and plan: Will place on Fentanyl patch for pain and dyspnea management. Morphine stopped yesterday. (6) Cholecystitis with cholelithiasis Current Visit: No Status: Acute Qualifiers: Cholelithiasis location: gallbladder Cholecystitis acuity: acute Biliary obstruction: without biliary obstruction Qualified Code(s): K80.00 - Calculus of gallbladder with acute cholecystitis without obstruction (7) Sepsis Current Visit: No Status: Acute Qualifiers: Sepsis type: sepsis due to unspecified organism Qualified Code(s): A41.9 - Sepsis, unspecified organism - Time Spent With Patient Total time spent is greater than 50% in coordination of care (as documented) at patient's floor/unit and/or counseling patient: - Subjective Interval history: Ms. Waller is lying in bed with her daughter at bedside. She shakes her head "no" when asked about pain. She has intermittent grunting with respirations and guards her abdomen with palpation. She was able to take sips of water this morning. - Constitutional Exam: 86 year old female patient, minimally responsive, grunting respirations at times. - ENT ENT exam: Present: mucous membranes dry - Respiratory Respiratory exam: Present: accessory muscle use. Absent: decreased breath sounds, respiratory distress, tachypnea - Cardiovascular Cardiovascular exam: Present: irregular rhythm, tachycardia - GI/Abdominal GI/Abdominal exam: Present: hypoactive bowel sounds, soft, tenderness - Extremities Exam Extremities exam: Absent: normal inspection - Neurological Exam Neurological exam: Present: altered - Skin Skin exam: Present: warm Additional comments: psoriatic lesions noted to extremities, mottling noted to bilateral knees. Palliative Quality Palliative Quality: Screen for Code Status: Yes, Screen for Goals of Care: Yes, Screen for Pain: Yes, If Pain Regimen Started, Initiate Bowel Regimen: Yes, Screen for Nausea/Vomitting: Yes Code Status: 09/29/16 16:10 Resuscitation Status: Active [RES] Routine Comment: Resuscitation Status: DNR-Comfort Care Consult Discharge Plan - Plan Referrals: NO,PCP [Primary Care Provider] -
[2016-10-01 20:27] VITALS: BP 55/37
[2016-10-02] MEDS: *HR* HYDROmorphone 2 MG/ML SYRINGE IVP PRN (03:48)
--- NOTE | 2016-10-02 08:44 | Death Note ---
Discharge Sum: Summary - Date and Time Date of admission: 09/29/16 18:01 Date of : 10/02/16 Time of : 04:35 - Summary Details: Patient was under general inpt hospice after a brief hospital stay where she had GI Bleed from duodenal ulcer, urinary infection, cholelithiasis with cholecystits and possible liver or gallbladder mass, and cardiomyopathy. Patient was poor surgical candidate and daughter did not desire surgery, she was agreeable to placement of bili drain, however, when evaluated by IR, duct was not visible r/t suspicious mass. Patient was becoming increasingly confused and hypotensive. Patient only daughter and closest next of kin, Natalee Solorio, decided to transition to inpt hospice and focus on keeping her comfortable. Patient blood pressure and oxygen levels began to decline 10/01 pm and she at 0435 on 10/02. Daughter was contacted in change of condition, but arrived to the hospital after pt . Hospice team was notified. - Additional Data Confirmation of as documented by pronouncing clinician: no pulse, no respirations, no heart sounds Family: contacted Attending/PCP notified?: Yes Attending physician: Kamran Jain Was code activated?: No Autopsy requested?: No Hospice patient?: Yes Discharge Sum: Diag - PCOD Probable Cause of : Respiratory arrest Discharge Sum: Prov - Provider Primary care physician: PCP NO Admitting clinician: Orion Bowser Consults: 09/29/16 16:11 Consult to Palliative Care [CONS] Routine Comment: Consulting Provider: Palliative Care Steph Pronouncing clinician: Jose Camacho
--- NOTE | 2016-10-05 14:11 | Event Note ---
Date of Encounter: 10/05/16 Time of Encounter: 14:08 Hospice biomedical engineering director certification of terminal illness: Hospice benefit. Start: 09/29/2016 Hospice benefit. In: +90 days Palliative performance scale: Approximately 20% History: The patient is septic, with diagnosis of acute cholecystitis. Patient also has severe cardiomyopathy. No further testing or antibiotics therapy is anticipated. Patient just wishes to be kept comfortable at this point. Her for I believe These findings support a life expectancy of 6 months or less. I attest that I have compose the above narrative based on my review of the patient's medical records, and or on my examination of the patient. Orion Bowser M.D. Associate medical doctor nuclear medicine. [facility]
== END 2016-10-02 04:35 | disposition expired | DRG 872 ==
LOC: 2ANU 18:01 → SUATTDRO 18:01
PROVIDERS: ADMIT Family Medicine Hospice and Palliative Medicine; ATTEND Internal Medicine